=== PATIENT | male | born 1960 | race Caucasian/White ===

== ENCOUNTER → 2020-03-19 12:41 | Outpatient (BNVA) | payer OTHER, SELFPAY | PROVIDERS: PCP Internal Medicine; Referring Provider Internal Medicine; Visit Provider Nurse Practitioner | DX: Z76.89 Persons encountering health services in other specified circumstances (principal) ==

== ENCOUNTER 2020-05-21 07:33 | Day surgery (SDC) | payer OTHER, SELFPAY ==
[2020-05-15 09:23] VITALS: BMI 28.5
--- NOTE | 2020-05-20 10:18 | HO.ANESPROP2 ---
Documented by User: Maritza Benitez 05/20/20 10:19 HPI - Anesthesia Eval Consult details Narrative: 59yo M for Upper Endoscopy FOR[facility]LY [facility] Past Medical History Medical History Benign essential hypertension Elevated PSA Gastritis Hyperlipidemia Family History Family History Father No problems noted. Mother No problems noted. Surgical History Surgical History H/O colonoscopy H/O nasal polypectomy Social History Social History Are you a primary insurance healthcare consultant to a significant other at home: No Do you presently have visiting nurse or other home services: No Alcohol intake: current Alcohol intake frequency: holidays/special occasions only Alcohol type: wine and hard liquor Smoking Status: Never smoker Use of substances other than those prescribed or required for medical reasons: No Have you been hit, kicked, punched, or otherwise hurt by someone within the past year? If so, by whom?: No Advance Directives: No Advance Directives Information Provided: No Advance Directives on File: No Recently lost weight without trying: No Meds Allergies Allergy/AdvReac Type Severity Reaction Status Date / Time No Known Allergies Allergy Verified 05/21/20 07:44 [No Known Allergies*] Home Medications Medication Instructions Recorded Confirmed Type lisinopril 20 mg tablet 20 mg PO DAILY 02/21/20 05/15/20 History Exam Exam Date and Time: May 20, 2020 1018 Height,Weight and Vital Signs: Height 5 ft 11 in Weight 92.986 kg Assessment and Plan Assessment Anesthesia Assessment: Chart Reviewed Documented by User: Zamzam Garza 05/21/20 09:04 [facility] Past Medical History Medical History Benign essential hypertension Elevated PSA Gastritis Hyperlipidemia Family History Family History Father No problems noted. Mother No problems noted. Surgical History Surgical History H/O colonoscopy H/O nasal polypectomy Social History Social History Are you a primary insurance healthcare consultant to a significant other at home: No Do you presently have visiting nurse or other home services: No Alcohol intake: current Alcohol intake frequency: holidays/special occasions only Alcohol type: wine and hard liquor Smoking Status: Never smoker Use of substances other than those prescribed or required for medical reasons: No Have you been hit, kicked, punched, or otherwise hurt by someone within the past year? If so, by whom?: No Advance Directives: No Advance Directives Information Provided: No Advance Directives on File: No Recently lost weight without trying: No Meds Allergies Allergy/AdvReac Type Severity Reaction Status Date / Time No Known Allergies Allergy Verified 05/21/20 07:44 [No Known Allergies*] Home Medications Medication Instructions Recorded Confirmed Type lisinopril 20 mg tablet 20 mg PO DAILY 02/21/20 05/15/20 History Exam Airway Mallampati Class: II TM Dist: >3cm Heart: RRR Lungs: CTA
[2020-05-21 08:03] VITALS: BP 155/89; PULSE 82; RESP 16; TEMP 36.4; O2SAT 97
[2020-05-21] MEDS: Lactated Ringers 1,000 ML 100 ML IVCONT (08:04)
--- NOTE | 2020-05-21 08:25 | W.PM.OPN ---
Operative Note Operative Note Date of Service: 05/21/20 Narrative: Pre-op diagnosis: Intermittent epigastric pain Post-op diagnosis: other (Gastritis, prominent gastric folds) Procedure: FLEXIBLE TRANSORAL UPPER GASTROINTESTINAL ENDOSCOPY WITH BIOPSIES Consent: Indications for the procedure and potential complications of bleeding, perforation, reaction to medications and missed diagnosis were discussed with the patient and informed consent was obtained. Instrument: Olympus GIF H 190 mid size upper endoscope Monitoring: Vital signs and clinical assessment, continuous EKG monitoring, Pulse oximetry, Carbon Dioxide monitoring and blood pressure monitoring were done throughout the procedure. Procedure: The patient was placed in the left lateral decubitis position and pre-procedure medications were administered and a bite block was placed. The endoscope was inserted into the mouth and advanced under direct vision to the third part of duodenum. A careful inspection was made as the upper endoscope was withdrawn including a retroflexed examination of the proximal stomach; Findings and interventions are described below. Findings: Larynx: Normal Esophagus: GE junction at 40 cms.. No esophagitis or Garza Stomach: Prominent gastric folds in the body of the stomach - biopsied. Patulous pyloric opening. Mild gastric erythema. Biopsies were obtained. Grade 2 flap valve on retroflexed examination of the cardia. Duodenum: Normal bulb and descending duodenum. Biopsies were obtained from 3rd miki of duodenum to check for celiac sprue. Intervention: Biopsies as noted above Impression and Post Procedure Diagnosis: Endoscopy Findings: STOMACH: Prominent gastric folds in the body of the stomach - biopsied. Mild gastric erythema. Biopsies were obtained. DUODENUM: Normal, biopsied to check for celiac sprue. Plan: Await pathology results Patient has an appointment on 06/04/20 in the GI [facility] with KAREN Levy. Above findings were reviewed with the patient and Gastritis handout was given in the discharge area Surgeon: Selena Oquendo MD Anesthesia: MAC (Dr Gee) Estimated blood loss (mL): 0 Pathology: other (A. Small bowel, B. gastric antrum, C. Gastric folds.) Condition: stable Disposition: PACU
--- NOTE | 2020-05-21 08:25 | MHC.SHP ---
Pre-Procedural Eval Section A The patient is an INPATIENT: No The History & Physical has been completed within 30 days and I have reviewed it.: No Section B Chief Complaint: epigastric pain Details of Present Illness: Recurrent epigastric pain Relevant Family History (Specify if Yes): No Relevant Social History: None Present Medications: see Short Stay Collaborative assessment Medical History: Significant History (Benign essential hypertension Elevated PSA Gastritis Hyperlipidemia) History of Previous Operations: Relevant previous surgery/procedure and date(s) (Colonoscopy) Allergies: Allergies Allergy/AdvReac Type Severity Reaction Status Date / Time No Known Allergies Allergy Verified 05/21/20 07:44 [No Known Allergies*] Review of Systems Sugical H&P ROS: Negative: Constitution, Cardiovascular and Respiratory and Yes, Specify: Gastrointestinal (Intermittent epigastric pain) Exam Surgical H&P Exam: Normal: Heart, Normal: Lungs, Normal: Extremities and Normal: Abdomen Plan Diagnosis/Plan: Unchanged I have reviewed the history and physical and performed a pertinent physical examination on my patient. No changes have occurred unless specified.
[2020-05-21 08:53] VITALS: BP 125/75; PULSE 80; RESP 16; TEMP 36.4; O2SAT 96
--- NOTE | 2020-05-21 09:05 | HO.POSTANES ---
Post Anesthesia Evaluation Post Anesthesia Evaluation Vital Signs: Vital Signs Temp Pulse Resp BP Pulse Ox 05/21/20 08:53 97.5 F 80 16 125/75 96 05/21/20 08:03 97.6 F 82 16 155/89 H 97 Anesthesia: Monitored Mental Status: Awake Pain Control: Satisfactory Nausea/Vomiting: None Hydration: Adequate Anesthesia-Related Issues: No Anes. Related Issues
[2020-05-21 09:09] VITALS: BP 129/81; PULSE 81; RESP 16; TEMP 36.4; O2SAT 98
== END 2020-05-21 10:00 ==
LOC: HO.SSS 07:33
PROVIDERS: PCP Internal Medicine; Visit Provider Internal Medicine Gastroenterology
PROC: 0DJ08ZZ Inspection of Upper Intestinal Tract, Via Natural or Artificial Opening Endoscopic (ICD-10-PCS; CPT 43235; principal; 2020-05-21 08:30)
DX: K29.50 Unspecified chronic gastritis without bleeding (principal); K31.89 Other diseases of stomach and duodenum; I10 Essential (primary) hypertension; E78.5 Hyperlipidemia, unspecified
CPT/HCPCS: 43239; 88305; 88342

== ENCOUNTER → 2020-06-04 08:58 | Outpatient (BNVA) | payer OTHER, SELFPAY | PROVIDERS: PCP Internal Medicine; Visit Provider Nurse Practitioner ==

== ENCOUNTER 2020-06-21 07:36 | Outpatient (REF) | payer OTHER, SELFPAY ==
[2020-06-21 09:22] LABS: Prostate Specific Antigen 5.08 ng/mL (<0.05-4.0)
[2020-06-28 16:21] LABS: Gastrin 109 pg/mL (<=100)
== END 2020-06-21 07:37 | disposition home or self-care (01) ==
LOC: HO.LAB 07:36
PROVIDERS: PCP Internal Medicine; Referring Provider Nurse Practitioner; Visit Provider Internal Medicine
DX: K29.70 Gastritis, unspecified, without bleeding (principal); K27.9 Peptic ulcer, site unspecified, unspecified as acute or chronic, without hemorrhage or perforation; B96.81 Helicobacter pylori [H. pylori] as the cause of diseases classified elsewhere; R10.13 Epigastric pain; R97.20 Elevated prostate specific antigen [PSA]
CPT/HCPCS: 36415; 82941; 84153

== ENCOUNTER 2021-03-04 06:38 | Outpatient (REF) | payer OTHER, SELFPAY ==
[2021-03-04 06:46] LABS: MANUAL DIFF FLAG NO
[2021-03-04 07:27] LABS: Basophils Absolute Auto 0.1 X10*3/uL (0.0-0.2); Basophils Percent Auto 0.7 % (0-2); Eosinophils Absolute Auto 0.2 X10*3/uL (0.0-0.4); Eosinophils Percent Auto 2.4 % (0-4); Hematocrit 42.8 % (42.0-52.0); Hemoglobin 13.6 g/dl (14.0-18.0); Imm Gran Abs Auto 0.04 X10*3/uL (0.00-0.03); Imm Gran Pct Auto 0.6 % (0.0-0.4); Lymphocytes Absolute Auto 1.4 X10*3/uL (1.2-4.9); Lymphocytes Percent Auto 21.2 % (20-40); Mean Corpuscular HGB Conc 31.8 g/dl (31.0-36.0); Mean Corpuscular Hemoglobin 28.6 pg (27.0-33.0); Mean Corpuscular Volume 89.9 fL (80.0-98.0); Mean Platelet Volume 10.1 fL (9.4-12.4); Monocytes Absolute Auto 0.8 X10*3/uL (0.1-1.2); Monocytes Percent Auto 11.8 % (2-11); Neutrophils Absolute Auto 4.2 x10*3/uL (2.0-8.3); Neutrophils Percent Auto 63.3 % (45-73); Platelet Count 302 X10*3/uL (160-400); Red Blood Count 4.76 X10*6/uL (4.60-5.80); Red Cell Distribution Width 15.8 % (11.0-16.0); White Blood Count 6.7 X10*3/uL (4.8-10.8)
[2021-03-04 08:16] LABS: Estimated Average Glucose 105 mg/dL; Hemoglobin A1c % 5.3 %
[2021-03-04 08:36] LABS: Alanine Aminotransferase 31 U/L (0-40); Alkaline Phosphatase 98 U/L (39-117); Anion Gap 15 (12-20); Aspartate Amino Transferase 18 U/L (5-37); Blood Urea Nitrogen 12 mg/dL (9-16); Calcium 9.8 mg/dL (8.4-10.2); Carbon Dioxide 26 mmol/L (22-29); Chloride 107 mmol/L (96-108); Cholesterol 150 mg/dL; Estimated Glomerular Filt Rate > 60; Glucose Fasting 109 mg/dL (60-99); HDL Cholesterol 52 mg/dL; LDL Cholesterol Calculated 72 mg/dl; Sodium 143 mmol/L (135-145); Total Protein 6.3 g/dL (6.5-8.0); Triglycerides 131 mg/dL
[2021-03-04 09:23] LABS: Prostate Specific Antigen Scr 9.52 ng/mL (<0.05-4.0)
== END 2021-03-04 06:39 | disposition home or self-care (01) ==
LOC: HO.LAB 06:38
PROVIDERS: PCP Internal Medicine; Visit Provider Nurse Practitioner Family
DX: Z12.5 Encounter for screening for malignant neoplasm of prostate (principal); I10 Essential (primary) hypertension; E78.00 Pure hypercholesterolemia, unspecified; E11.9 Type 2 diabetes mellitus without complications; R97.20 Elevated prostate specific antigen [PSA]
CPT/HCPCS: 36415; 80053; 80061; 83036; 84153; 85025

== ENCOUNTER → 2021-03-25 09:01 | Outpatient (BNVA) | payer OTHER, SELFPAY | PROVIDERS: PCP Internal Medicine; Visit Provider Internal Medicine Pulmonary Disease ==

== ENCOUNTER 2021-04-07 09:03 | Outpatient (REF) | payer OTHER, SELFPAY ==
--- NOTE | 2021-04-07 16:29 | PFT_ITS ---
Forced vital capacity and FEV1 are both moderately decreased. FHA23-38 is normal. MVV is slightly decreased. Post bronchodilator therapy, there is no significant change. Total lung capacity moderately decreased and residual volume is markedly decreased. Diffusion capacity also markedly decreased. CONCLUSION: These findings are consistent with moderate degree of restrictive pulmonary disorder. There is no significant obstructive airway disorder. Diffusion capacity is markedly decreased somewhat out of proportion to the other values. This may be due to pulmonary emphysema or some non-pulmonary factors. Clinical correlation is recommended. MD SAKINA Breaux/MODL / [id number]
== END 2021-04-07 09:04 | disposition home or self-care (01) ==
LOC: HO.RESP 09:03
PROVIDERS: PCP Internal Medicine; Visit Provider Internal Medicine Pulmonary Disease
DX: R06.00 Dyspnea, unspecified (principal); U09.9 Post COVID-19 condition, unspecified
CPT/HCPCS: 94060; 94727; 94729

== ENCOUNTER 2021-04-22 13:18 | Outpatient (REF) | payer OTHER, SELFPAY ==
--- NOTE | ~2021-04-22 | CT_ITS ---
EXAMINATION: CT CHEST WITHOUT CONTRAST CLINICAL INFORMATION: Post COVID-19 infection. COMPARISON: None TECHNIQUE: Multidetector volumetric CT imaging of the chest was done. Axial MIP volume rendering provided. Sagittal and coronal reformatted images were obtained. This CT examination was performed using dose optimization techniques as appropriate, variously including the following: *Automated exposure control *Adjustment of mA and/or kV according to patient size (this includes techniques or standardized protocols for targeted exams where dose is matched to indication/reason for exam; i.e. extremities or head) *Use of iterative reconstruction technique DLP: 206 mGy-cm FINDINGS: SAND HAULER: No significant additional findings. LUNGS: Ground-glass opacities with reticulated and curvilinear intermixed interstitial lung markings predominantly involve the upper lung zones with hazy ground-glass opacities involving the lingula, middle lobe and lower lobes with less intensity. No dense focal consolidation. Minor fissural lymph node measures 0.5 cm. Trachea is midline and central airways are patent. MEDIASTINUM: Heart size is normal. No pericardial effusion. No evidence of mediastinal lymphadenopathy. Limited evaluation for hilar adenopathy without IV contrast. No bulky hilar lymph nodes are appreciated. Coronary artery stent. Limited views of the thyroid demonstrate a tiny hypodensity within the left thyroid lobe measuring 0.2 cm, no follow-up imaging recommended. PLEURA: No pleural effusion or pneumothorax. AXILLA: No axillary lymphadenopathy. UPPER ABDOMEN: There is an exophytic lesion off the upper pole the left kidney measuring internal attenuation of 17 Hounsfield units. Along the inferior edge of this lesion at the interface with the renal tissue is a thick irregular calcification. The renal contour inferior to this calcification is also a bulge along the posterolateral margin of the kidney but is only partially imaged. OSSEOUS STRUCTURES: No acute or suspicious osseous abnormality. CT/CT chest wo con IMPRESSION: 1. Incidentally found mass exophytic off the left kidney upper pole with thick coarse irregular calcification. Dedicated renal imaging is recommended with either CT or MRI for further assessment as renal cell carcinoma is on the differential diagnosis. 2. In this patient with known prior COVID infection, the lung findings described above are in keeping with postinfectious scarring and ground-glass opacities. No prior studies are available for comparison. Fleischner guidelines were followed. The report will be called to the ordering clinician by a [facility] Workflow Coordinator.
== END 2021-04-22 13:19 | disposition home or self-care (01) ==
LOC: HO.CT 13:18
PROVIDERS: Visit Provider Internal Medicine Pulmonary Disease
DX: U09.9 Post COVID-19 condition, unspecified (principal); N28.89 Other specified disorders of kidney and ureter
CPT/HCPCS: 71250

== ENCOUNTER 2021-04-29 07:22 | Outpatient (REF) | payer OTHER, SELFPAY ==
[2021-04-29 07:36] LABS: MANUAL DIFF FLAG NO
[2021-04-29 08:10] LABS: Basophils Absolute Auto 0.1 X10*3/uL (0.0-0.2); Basophils Percent Auto 0.8 % (0-2); Eosinophils Absolute Auto 1.1 X10*3/uL (0.0-0.4); Hematocrit 47.1 % (42.0-52.0); Imm Gran Abs Auto 0.02 X10*3/uL (0.00-0.03); Imm Gran Pct Auto 0.3 % (0.0-0.4); Lymphocytes Absolute Auto 1.5 X10*3/uL (1.2-4.9); Lymphocytes Percent Auto 19.6 % (20-40); Mean Corpuscular HGB Conc 31.8 g/dl (31.0-36.0); Mean Corpuscular Hemoglobin 28.4 pg (27.0-33.0); Mean Platelet Volume 11.1 fL (9.4-12.4); Monocytes Absolute Auto 0.8 X10*3/uL (0.1-1.2); Neutrophils Absolute Auto 4.2 x10*3/uL (2.0-8.3); Neutrophils Percent Auto 55.3 % (45-73); Platelet Count 207 X10*3/uL (160-400); Red Blood Count 5.29 X10*6/uL (4.60-5.80); Red Cell Distribution Width 13.8 % (11.0-16.0); White Blood Count 7.6 X10*3/uL (4.8-10.8)
[2021-04-29 08:36] LABS: Alanine Aminotransferase 27 U/L (0-40); Albumin Level 4.3 g/dL (3.5-5.0); Alkaline Phosphatase 91 U/L (39-117); Anion Gap 12 (12-20); Aspartate Amino Transferase 18 U/L (5-37); Bilirubin Total 0.7 mg/dL (0.0-1.0); Blood Urea Nitrogen 17 mg/dL (9-16); Calcium 9.9 mg/dL (8.4-10.2); Carbon Dioxide 28 mmol/L (22-29); Chloride 108 mmol/L (96-108); Estimated Glomerular Filt Rate > 60; Glucose Random 135 mg/dL (60-115); Potassium 4.5 mmol/L (3.3-5.1); Sodium 143 mmol/L (135-145); Total Protein 6.7 g/dL (6.5-8.0)
== END 2021-04-29 07:23 | disposition home or self-care (01) ==
LOC: HO.LAB 07:22
PROVIDERS: PCP Internal Medicine; Visit Provider Internal Medicine
DX: N28.89 Other specified disorders of kidney and ureter (principal)
CPT/HCPCS: 36415; 80053; 85025

== ENCOUNTER → 2021-05-01 09:13 | Outpatient (BNVA) | payer OTHER, SELFPAY | PROVIDERS: PCP Internal Medicine; Visit Provider Internal Medicine Pulmonary Disease ==

== ENCOUNTER 2021-05-26 06:18 | Outpatient (REF) | payer OTHER, SELFPAY ==
--- NOTE | ~2021-05-26 | CT_ITS ---
EXAMINATION: CT ABDOMEN WITHOUT AND WITH CONTRAST CLINICAL INFORMATION: Further evaluation of an indeterminate lesion in the left kidney. COMPARISON: CT chest dated from 04/22/2021. TECHNIQUE: Contiguous axial thin section helical images of the abdomen were performed before and after the administration 85 mL of Omnipaque 350 intravenous contrast. The data set was reformatted in the coronal and sagittal planes and reviewed on an independent workstation. This CT examination was performed using dose optimization techniques as appropriate, variously including the following: *Automated exposure control *Adjustment of mA and/or kV according to patient size (this includes techniques or standardized protocols for targeted exams where dose is matched to indication/reason for exam; i.e. extremities or head) *Use of iterative reconstruction technique DLP: 377 mGy-cm FINDINGS: LUNG BASES: Decrease groundglass opacities and reticulation in the visualized lung bases. No new focal airspace opacities. No pleural effusion. LIVER, GALLBLADDER, AND BILIARY TREE: The liver is normal in size, shape and attenuation without focal abnormalities. There is no biliary ductal dilatation. Normal appearance of the gallbladder. PANCREAS: The main pancreatic duct is nondilated. No focal abnormalities. No peripancreatic free fluid or fat stranding. SPLEEN: Normal size. No focal abnormalities. ADRENAL GLANDS AND KIDNEYS: No adrenal lesions. Corresponding to the lesion in question in the upper pole of the left kidney, there is redemonstration of a 1.9 cm lesion with thick peripheral calcifications. This lesion measures 18.8 Hounsfield units on precontrast images and 22 Hounsfield units on postcontrast images. The size of this lesion is unchanged since 04/22/2021. There is a 0.3 cm nonobstructive calculus in the mid pole of the left kidney situated at 7.7 cm from the skin surface of the posterior axillary line. There is redemonstration of indeterminate cortical thinning in the lateral surface of the upper pole of the right kidney. No hydronephrosis. No solid renal lesions. BOWEL LOOPS: Imaged segments of the bowel are within normal limits without evidence of obstruction nor active inflammatory bowel changes. LYMPH NODES: No lymphadenopathy by size criteria. VASCULAR: Scattered atherosclerotic disease. The abdominal aorta is of normal diameter. BONES: No acute or aggressive osseous abnormalities. Thoracolumbar spondylosis. CT/CT abdomen wo/w con IMPRESSION: Nonenhancing stable 1.9 cm cystic lesion in the upper pole of the left kidney with thick peripheral calcifications that could potentially obscure peripheral mural nodules. This is classified as a Bosniak 2F lesion requiring follow-up to ensure stability. Nonobstructive left-sided renal calculus.
[2021-05-26 07:42] LABS: Glucose Fasting 121 mg/dL (60-99)
[2021-05-26 07:45] LABS: Blood Urea Nitrogen 11 mg/dL (9-16); Estimated Glomerular Filt Rate > 60
== END 2021-05-26 06:19 | disposition home or self-care (01) ==
LOC: HO.CT 06:18
PROVIDERS: Nurse Practitioner Family; PCP Internal Medicine; Visit Provider Internal Medicine
DX: N28.89 Other specified disorders of kidney and ureter (principal); E78.5 Hyperlipidemia, unspecified; I10 Essential (primary) hypertension; N17.9 Acute kidney failure, unspecified; R73.9 Hyperglycemia, unspecified
CPT/HCPCS: 36415; 74170; 82565; 82947; 84520

== ENCOUNTER → 2021-07-31 09:10 | Outpatient (BNVA) | payer OTHER, SELFPAY | PROVIDERS: PCP Internal Medicine; Visit Provider Internal Medicine Pulmonary Disease | DX: Z13.89 Encounter for screening for other disorder (principal) ==

== ENCOUNTER 2021-10-31 13:50 | Outpatient (AMB) | payer OTHER, SELFPAY ==
--- NOTE | 2021-10-31 13:52 | A.OFFVIS_ITS ---
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 He is a patient Dr. [place]. He seen for the following urologic conditions - elevated PSA - calcified renal cyst - lower urinary tract symptoms Presents with urinary urgency and frequency Recommend trial Flomax Follow-up PSA Elevated PSA COVID prostatitis been 1 month on ventilator PSA 07/15 9 Calcified renal cyst Detected on imaging Lower urinary tract symptoms Initial presentation with hesitancy and nocturia PFSH Medical History (Updated 11/30/22 @ 16:20 by León Vo MD) Varicose veins of lower extremities with other complications Diabetes mellitus Obesity (BMI 30-39.9) Coronary artery disease Benign prostatic hyperplasia with urinary frequency Pure hypercholesterolemia Left renal mass Overweight (BMI 25.0-29.9) Chronic gastritis H pylori ulcer Hyperlipidemia Elevated PSA Gastritis Benign essential hypertension Surgical History (Updated 11/30/22 @ 16:16 by León Vo MD) Status post endovenous radiofrequency ablation of saphenous vein (~2022) History of coronary artery stent placement (~10/2020) H/O colonoscopy H/O nasal polypectomy Family History Father No problems noted. Mother No problems noted. 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 Cognitive needs: No Hearing needs: No Vision needs: No Review of Systems Const Denies chills and Denies fever(s) Card Reports no additional complaints and Denies syncope Resp Denies cough GI Denies abdominal pain and Denies heartburn Reports as per HPI and Denies change in libido Neuro Denies syncope Psych Denies change in libido Endo Denies change in libido Physical Exam Vital Signs: Last Vital Signs Pulse 72 10/31/21 13:59 Resp 18 10/31/21 13:59 BP 114/90 H 10/31/21 13:59 BMI result Body Mass Index 30.7 Const General: cooperative, healthy appearing, comfortable and no acute distress Orientation/consciousness: patient oriented x3 HEENT Face and sinus: Yes normal facial exam Mouth: moist mucous membranes Neck Neck: Yes normal visual inspection, Yes full ROM and Yes trachea midline Chest Chest palpation & inspection: normal inspection of the chest Resp Effort & Inspection: normal respiratory effort, able to speak in complete sentences and no respiratory distress GI Inspection: Yes normal to inspection Back/Spine/Pelvis Cervical Spine: normal cervical lordosis Thoracic/Lumbar Spine: thoracic and lumbar spine normal to inspection Skin General skin exam: no rashes or lesions noted Neuro General: patient oriented x3, gait normal, tone normal and moves all extremities Extrem General: Yes normal to inspection and Yes capillary refill normal Assessment & Plan Assessment & Plan (1) Benign prostatic hyperplasia with urinary frequency: Code(s): N40.1 - Benign prostatic hyperplasia with lower urinary tract symptoms; R35.0 - Frequency of micturition Plan Trial tamsulosin Follow-up PSA Orders: Orders PSA,Total (Free>4and<10) 3 Months N40.1 - Benign prostatic hyperplasia with lower urinary tract symptoms, N13.8 - Other obstructive and reflux uropathy, R35.0 - Frequency of micturition PSA,Total (Free>4and<10) 10/31/21 N40.1 - Benign prostatic hyperplasia with lower urinary tract symptoms, N13.8 - Other obstructive and reflux uropathy, R35.0 - Frequency of micturition Medications: New tamsulosin 0.4 mg PO BEDTIME 90 caps 1RF 90 days N40.1 - Benign prostatic hyperplasia with lower urinary tract symptoms, R35.0 - Frequency of micturition, N13.8 - Other obstructive and reflux uropathy Patient Instructions: The patient had an opportunity to ask questions regarding treatment plan. All questions were answered. Imaging studies, laboratory studies and physical exam results were discussed and reviewed in detail. No major barriers to understanding were identified. The patient expressed understanding and agreement with the above treatment plan. The patient is aware they should contact our office by phone for worsening of their current condition or the appearance of new symptoms. Compliance is encouraged with any medications and followup testing that is ordered. It is a privilege to be allowed the opportunity to participate in the urologic care of your patient. If you have any questions or concerns regarding treatment for the above conditions please do not hesitate to contact me. The office telephone contact is [phone]. This note is constructed using voice recognition software. While every effort has been made to ensure accuracy artist representative errors may have been included. Yours sincerely, Dr Antoni Karimi MD, NELIDA Coding Level of Care Code New Pt Level 4 (59124) Diagnoses Benign prostatic hyperplasia with urinary frequency N40.1; R35.0
[2021-10-31 13:59] VITALS: BP 114/90; PULSE 72; RESP 18; BMI 30.7
== END 2021-10-31 14:37 | disposition home or self-care (01) ==
LOC: HO.HUSH 13:50
PROVIDERS: PCP Internal Medicine; Visit Provider Urology
DX: N40.1 Benign prostatic hyperplasia with lower urinary tract symptoms (principal); R35.0 Frequency of micturition
CPT/HCPCS: 99499

== ENCOUNTER 2021-11-08 07:02 | Outpatient (REF) | payer OTHER, SELFPAY ==
[2021-11-08 07:13] LABS: MANUAL DIFF FLAG NO
[2021-11-08 08:26] LABS: Basophils Absolute Auto 0.1 X10*3/uL (0.0-0.2); Basophils Percent Auto 1.1 % (0-2); Eosinophils Absolute Auto 0.4 X10*3/uL (0.0-0.4); Eosinophils Percent Auto 5.9 % (0-4); Hematocrit 48.7 % (42.0-52.0); Imm Gran Abs Auto 0.03 X10*3/uL (0.00-0.03); Imm Gran Pct Auto 0.5 % (0.0-0.4); Lymphocytes Absolute Auto 1.5 X10*3/uL (1.2-4.9); Lymphocytes Percent Auto 22.5 % (20-40); Mean Corpuscular HGB Conc 32.9 g/dl (31.0-36.0); Mean Corpuscular Volume 88.2 fL (80.0-98.0); Mean Platelet Volume 11.3 fL (9.4-12.4); Monocytes Absolute Auto 0.6 X10*3/uL (0.1-1.2); Monocytes Percent Auto 9.7 % (2-11); Neutrophils Percent Auto 60.3 % (45-73); Platelet Count 199 X10*3/uL (160-400); Red Blood Count 5.52 X10*6/uL (4.60-5.80); Red Cell Distribution Width 13.9 % (11.0-16.0); White Blood Count 6.6 X10*3/uL (4.8-10.8)
[2021-11-08 08:31] LABS: Appearance Urine HAZY; Color Urine YELLOW; Glucose Urine UA NEG (NEG); Leukocyte Esterase Urine NEG (NEG); Nitrite Urine NEG (NEG); PH 5.5 (5.0-8.0); Specific Gravity - Urine >= 1.030 (1.005-1.025); Urine Blood NEG (NEG); Urine Ketones NEG (NEG); Urine Protein NEG (NEG-TRACE)
[2021-11-08 09:05] LABS: Alanine Aminotransferase 42 U/L (0-40); Albumin Level 4.4 g/dL (3.5-5.0); Alkaline Phosphatase 90 U/L (39-117); Anion Gap 11 (12-20); Aspartate Amino Transferase 30 U/L (5-37); Bilirubin Total 0.7 mg/dL (0.0-1.0); Blood Urea Nitrogen 16 mg/dL (9-16); Calcium 8.9 mg/dL (8.4-10.2); Carbon Dioxide 24 mmol/L (22-29); Chloride 109 mmol/L (96-108); Cholesterol 140 mg/dL; Estimated Glomerular Filt Rate > 60; Glucose Fasting 113 mg/dL (60-99); HDL Cholesterol 53 mg/dL; LDL Cholesterol Calculated 71 mg/dl; Potassium 4.4 mmol/L (3.3-5.1); Sodium 140 mmol/L (135-145); Total Protein 6.8 g/dL (6.5-8.0); Triglycerides 84 mg/dL
[2021-11-08 09:17] LABS: TSH reflex Free T4 1.73 uIU/mL (0.32-4.0); Vitamin D 25-OH Total 42.2 ng/mL (>30)
[2021-11-08 09:18] LABS: PSA,Total (Free>4and<10) 3.68 ng/mL (0.00-4.00)
== END 2021-11-08 07:03 | disposition home or self-care (01) ==
LOC: HO.LAB 07:02
PROVIDERS: PCP Internal Medicine; Visit Provider Urology
DX: Z12.5 Encounter for screening for malignant neoplasm of prostate (principal); E78.00 Pure hypercholesterolemia, unspecified; E55.9 Vitamin D deficiency, unspecified; N13.8 Other obstructive and reflux uropathy; N40.1 Benign prostatic hyperplasia with lower urinary tract symptoms; R35.0 Frequency of micturition; I10 Essential (primary) hypertension
CPT/HCPCS: 36415; 80053; 80061; 81003; 82306; 84153; 84443; 85025

== ENCOUNTER 2022-01-24 08:12 | Outpatient (REF) | payer OTHER, SELFPAY ==
[2022-01-24 10:22] LABS: PSA,Total (Free>4and<10) 4.02 ng/mL (0.00-4.00)
[2022-01-27 09:02] LABS: Free Prostate Spec Ag 0.6 ng/mL; Percent Free Prostate Spec Ag 14 % (calc) (>25); Prostate Specific Ag Total 4.2 ng/mL (< OR = 4.0)
== END 2022-01-24 08:13 | disposition home or self-care (01) ==
LOC: HO.LAB 08:12
PROVIDERS: PCP Internal Medicine; Visit Provider Urology
DX: N40.1 Benign prostatic hyperplasia with lower urinary tract symptoms (principal); N13.8 Other obstructive and reflux uropathy; R35.0 Frequency of micturition; R73.01 Impaired fasting glucose; Z12.5 Encounter for screening for malignant neoplasm of prostate
CPT/HCPCS: 36415; 84153; 84154

== ENCOUNTER 2022-05-16 07:05 | Outpatient (REF) | payer OTHER, SELFPAY ==
[2022-05-16 07:56] LABS: Estimated Average Glucose 143 mg/dL; Hemoglobin A1c % 6.6 %
[2022-05-16 08:54] LABS: Alanine Aminotransferase 58 U/L (0-40); Albumin Level 4.4 g/dL (3.5-5.0); Alkaline Phosphatase 100 U/L (39-117); Anion Gap 13 (12-20); Aspartate Amino Transferase 37 U/L (5-37); Bilirubin Total 1.2 mg/dL (0.0-1.0); Blood Urea Nitrogen 13 mg/dL (9-16); Calcium 9.8 mg/dL (8.4-10.2); Carbon Dioxide 27 mmol/L (22-29); Chloride 107 mmol/L (96-108); Cholesterol 161 mg/dL; Estimated Glomerular Filt Rate > 60; Glucose Random 130 mg/dL (60-115); HDL Cholesterol 50 mg/dL; LDL Cholesterol Calculated 89 mg/dl; Potassium 4.7 mmol/L (3.3-5.1); Sodium 142 mmol/L (135-145); Total Protein 6.8 g/dL (6.5-8.0); Triglycerides 111 mg/dL
== END 2022-05-16 07:06 | disposition home or self-care (01) ==
LOC: HO.LAB 07:05
PROVIDERS: PCP Internal Medicine; Visit Provider Nurse Practitioner Family
DX: I10 Essential (primary) hypertension (principal); R73.01 Impaired fasting glucose; E78.00 Pure hypercholesterolemia, unspecified
CPT/HCPCS: 36415; 80053; 80061; 83036

== ENCOUNTER 2022-08-08 07:11 | Outpatient (REF) | payer OTHER, SELFPAY ==
[2022-08-08 09:41] LABS: Prostate Specific Antigen 4.98 ng/mL (<0.05-4.0)
== END 2022-08-08 07:12 | disposition home or self-care (01) ==
LOC: HO.LAB 07:11
PROVIDERS: PCP Internal Medicine; Visit Provider Urology
DX: Z12.5 Encounter for screening for malignant neoplasm of prostate (principal); R97.20 Elevated prostate specific antigen [PSA]
CPT/HCPCS: 36415; 84153

== ENCOUNTER → 2022-08-11 08:34 | Outpatient (BNVA) | payer OTHER, SELFPAY | PROVIDERS: PCP Internal Medicine; Visit Provider Urology | DX: Z13.89 Encounter for screening for other disorder (principal) ==

== ENCOUNTER 2022-11-07 10:27 | Outpatient (REF) | payer OTHER, SELFPAY ==
[2022-11-07 10:53] LABS: MANUAL DIFF FLAG NO
[2022-11-07 11:01] LABS: Basophils Percent Auto 0.6 % (0-2); Eosinophils Absolute Auto 0.1 X10*3/uL (0.0-0.4); Eosinophils Percent Auto 1.4 % (0-4); Hemoglobin 14.8 g/dl (14.0-18.0); Imm Gran Abs Auto 0.02 X10*3/uL (0.00-0.03); Imm Gran Pct Auto 0.3 % (0.0-0.4); Lymphocytes Absolute Auto 1.4 X10*3/uL (1.2-4.9); Lymphocytes Percent Auto 21.8 % (20-40); Mean Corpuscular HGB Conc 32.9 g/dl (31.0-36.0); Mean Corpuscular Hemoglobin 28.7 pg (27.0-33.0); Mean Corpuscular Volume 87.2 fL (80.0-98.0); Mean Platelet Volume 10.5 fL (9.4-12.4); Monocytes Absolute Auto 0.6 X10*3/uL (0.1-1.2); Monocytes Percent Auto 10.2 % (2-11); Neutrophils Absolute Auto 4.1 x10*3/uL (2.0-8.3); Neutrophils Percent Auto 65.7 % (45-73); Platelet Count 244 X10*3/uL (160-400); Red Blood Count 5.16 X10*6/uL (4.60-5.80); Red Cell Distribution Width 13.8 % (11.0-16.0); White Blood Count 6.3 X10*3/uL (4.8-10.8)
[2022-11-07 11:12] LABS: Estimated Average Glucose 114 mg/dL; Hemoglobin A1c % 5.6 %
[2022-11-07 11:22] LABS: Appearance Urine Clear; Color Urine Yellow; Glucose Urine UA Negative (Negative); Leukocyte Esterase Urine Negative (Negative); Nitrite Urine Negative (Negative); Urine Blood Negative (Negative); Urine Ketones Negative (Negative); Urine Protein Negative (Neg-Trace)
[2022-11-07 11:51] LABS: Alanine Aminotransferase 53 U/L (0-40); Albumin Level 3.8 g/dL (3.5-5.0); Alkaline Phosphatase 121 U/L (39-117); Anion Gap 11 (12-20); Aspartate Amino Transferase 32 U/L (5-37); Bilirubin Total 0.7 mg/dL (0.0-1.0); Blood Urea Nitrogen 14 mg/dL (9-16); Calcium 9.4 mg/dL (8.4-10.2); Carbon Dioxide 26 mmol/L (22-29); Chloride 110 mmol/L (96-108); Cholesterol 117 mg/dL; Estimated Glomerular Filt Rate > 60; Glucose Fasting 108 mg/dL (60-99); HDL Cholesterol 42 mg/dL; LDL Cholesterol Calculated 65 mg/dl; Potassium 4.2 mmol/L (3.3-5.1); Sodium 143 mmol/L (135-145); Total Protein 6.2 g/dL (6.5-8.0); Triglycerides 53 mg/dL
[2022-11-07 11:54] LABS: Creatinine Urine 136.64 mg/dL; Microalbum/Creatinine Ratio Ur 5.1 ug/mg cr
[2022-11-07 12:06] LABS: Vitamin D 25-OH Total 47.5 ng/mL (>30)
== END 2022-11-07 10:28 | disposition home or self-care (01) ==
LOC: HO.LAB 10:27
PROVIDERS: PCP Internal Medicine; Visit Provider Internal Medicine
DX: R30.0 Dysuria (principal); E11.9 Type 2 diabetes mellitus without complications; E78.00 Pure hypercholesterolemia, unspecified; I10 Essential (primary) hypertension; E55.9 Vitamin D deficiency, unspecified
CPT/HCPCS: 36415; 80053; 80061; 81003; 82043; 82306; 83036; 84443; 85025

== ENCOUNTER 2022-11-30 15:25 | Outpatient (AMB) | payer OTHER, SELFPAY ==
[2022-11-30 15:32] VITALS: BP 118/80; PULSE 61; O2SAT 98; BMI 28.8
--- NOTE | 2022-11-30 15:32 | MHC.PC.OV ---
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 Accompanied by: Self / Same As Patient Allergies No Known Allergies [No Known Allergies*] Allergy (Verified 11/30/22 15:49) Medication List - Last Reconciled 11/30/22 by León Vo MD aspirin 81 mg PO DAILY 90 days atorvastatin 80 mg PO DAILY 90 days blood pressure monitor (Blood Pressure Kit) As directed clonidine HCl 0.2 mg PO Q12H 90 days lisinopril 20 mg PO DAILY 90 days metoprolol tartrate 12.5 mg (1/2 x 25 mg) PO BID 90 days tamsulosin 0.4 mg PO BEDTIME 90 days Tobacco use date assessed: 11/30/22 Dental Screening Dental Screen Date: 11/30/22 Did you have a dental visit in the last 12 months?: No Did you have a dental problem in the last 6 months where you did not have access to dental care?: No Was dental information given to patient?: No HPI DM, HTN, hyperlipidemia HPI Details Patient comes in today for his follow up visit States that he feels okay He denies any headaches or dizziness Denies any chest pains, no SOB No nausea/vomiting, no abdominal pain No change in bowel habits noted States that his previous right heel ulcer is now almost healed up completely Had ablation of his right great saphenous vein with Dr. Levy earlier this year and states that his leg swelling and symptoms have improved a lot since his procedure He is also scheduled for a prostate Bx with Dr. Karimi here at [facility] in 3 days and has been off his low dose Aspirin for about a week now Had his follow up labs done a few weeks ago - to discuss his results [facility] Medical History (Updated 11/30/22 @ 16:20 by León Vo MD) Benign essential hypertension Benign prostatic hyperplasia with urinary frequency Chronic gastritis Coronary artery disease Diabetes mellitus Elevated PSA Gastritis H pylori ulcer Hyperlipidemia Left renal mass Obesity (BMI 30-39.9) Overweight (BMI 25.0-29.9) Pure hypercholesterolemia Varicose veins of lower extremities with other complications Surgical History (Updated 11/30/22 @ 16:16 by León Vo MD) H/O colonoscopy H/O nasal polypectomy History of coronary artery stent placement (~10/2020) Status post endovenous radiofrequency ablation of saphenous vein (~2022) Family History Father No problems noted. Mother No problems noted. 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 1. Little interest or pleasure in doing things: not at all 2. Feeling down, depressed, or hopeless: not at all 3. Trouble falling or staying asleep, or sleeping too much: not at all 4. Feeling tired or having little energy: not at all 5. Poor appetite or overeating: not at all 6. Feeling bad about yourself - or that you are a failure or have let yourself or your family down: not at all 7. Trouble concentrating on things, such as reading the newspaper or watching television: not at all 8. Moving or speaking so slowly that other people could have noticed. Or the opposite - being so fidgety or restless that you have been moving around a lot more than usual: not at all 9. Thoughts that you would be better off or of hurting yourself in some way: not at all Total score: 0 Depression Screening Interpretation: Negative 54357 - PHQ-9 Billing: Yes Source: Developed by Drs. Raul Brown, Riana Kincaid, Rocky Ricci and colleagues, with an educational andrés from [employer] [facility] [employer] Information. Thrive Questionnaire Date Thrive assessed: 11/30/22 I am a: Patient What is your living situation today?: I have a steady place to live Within the past 12 months, did the food you bought not last and you didn't have the money to get more?: Never true Within the past 12 months, did you worry whether your food would run out before you got money to buy more?: Never true Do you have trouble paying for medicines?: No Do you have trouble getting transportation to medical appointments?: No Do you have trouble paying your heating and electricity bill?: No Do you have trouble taking care of your child, family member or friend?: No Do you have trouble with day-to-day activities such as bathing, preparing meals, shopping, managing finances, etc.?: No Are you currently unemployed and looking for a job?: No Are you interested in more education?: No Please select the resources that you would like help with: None Currently or been in a relationship where the following occur: no concerns reported AUDIT C Alcohol Use Questionnaire (AUDIT-C) 1. How often do you have a drink containing alcohol?: Never 3. How often do you have six or more drinks on one occasion?: Never Total Score: 0 Score Reviewed/Action Taken: Yes ELROY-7 AMB Questionnaire ELROY-7 Date ELROY - 7 assessed: 11/30/22 Feeling nervous, anxious, or on edge: 0 = Not at all Not being able to stop or control worryin = Not at all Worrying too much about different things: 0 = Not at all Trouble relaxin = Not at all Being so restless that it is hard to sit still: 0 = Not at all Becoming easily annoyed or irritable: 0 = Not at all Feeling afraid as if something awful might happen: 0 = Not at all Total ELROY-7 score (0-4 normal; 5-9 mild; 10-14 moderate; 15-21 severe): 0 Source: Developed by Drs. Raul Brown, Riana Kincaid, Rocky Ricci and colleagues, with an educational andrés from [employer] Reviews [employer] Information. ELROY-7 Assessment Billing ELROY-7 Assessment Tool: ELROY-7 Assessment 29228 Review of Systems Const Denies chills, Denies fatigue, Denies fever(s) and Denies headache(s) ENT Denies dysphagia, Denies dizziness, Denies otalgia, Denies headache(s), Denies odynophagia and Denies sore throat Card Denies chest pain, Denies palpitations and Denies dyspnea Resp Denies cough and Denies dyspnea GI Denies abdominal pain, Denies constipation, Denies dysphagia, Denies heartburn, Denies diarrhea, Denies nausea, Denies odynophagia and Denies vomiting Denies dysuria, Denies nocturia and Denies urinary frequency Skin/Breast Details: previous sore over the lateral aspect of the right ankle has healed up - no open wound noted Denies rash Neuro Denies dizziness and Denies headache(s) Endo Denies fatigue and Denies palpitations Physical exam (Primary Care) Vital Signs: Last Vital Signs Pulse 61 11/30/22 15:32 BP 118/80 11/30/22 15:32 Pulse Ox 98 11/30/22 15:32 Oxygen Delivery Method Room Air 11/30/22 15:32 BMI result Body Mass Index 28.8 Tobacco/Smoking Status: Tobacco use Status Tobacco use date assessed 11/30/22 11/30/22 15:36 Patient Tobacco Use Status Never used Tobacco 11/30/22 15:36 e-Cigarette/Vaping Use Never Used 11/30/22 15:36 PHQ-9: PHQ-9 Score PHQ-9: Total score 0 11/30/22 15:36 Depression Screening Interpretation: Negative Thrive Assessment: Date of Thrive Assessment Date Thrive assessed 11/30/22 11/30/22 15:36 Currently or been in a relationship where the following occur: no concerns reported Const General: no acute distress and alert HENMT Ears: TM's normal bilaterally and EAC's normal Throat: Yes posterior oropharynx normal and Yes tonsils normal (no TP congestion) Neck Neck: Yes no lymphadenopathy and Yes supple Resp Auscultation: clear to auscultation bilaterally, no rales and no wheezes Cardio Rate: regular rate Rhythm: regular rhythm Heart sounds: no murmurs GI Palpation (GI): Soft to palpation and nontender Auscultation: normal bowel sounds Back/Spine/Pelvis Thoracic/Lumbar Spine: No lumbar spinal tenderness Skin Other: (+) healed scar over the lateral aspect of the right ankle Rashes: no rashes Extrem General: No clubbing, No cyanosis and Yes pedal edema ((+) trace, bilaterally) Results Reviewed Results Reviewed: Laboratory Tests 11/07/22 11/07/22 11/07/22 10:39 10:39 10:51 WBC 6.3 Hgb 14.8 Hct 45.0 Plt Count 244 Sodium Potassium Creatinine Estimated GFR Fasting Glucose Hemoglobin A1c % Calcium AST ALT Triglycerides Cholesterol LDL Cholesterol, Calc HDL Cholesterol 25-OH Vitamin D Total TSH Ur Specific [place] 1.020 Urine Protein Negative Urine Glucose (UA) Negative Urine Blood Negative Microalb/Creat Ratio 5.1 11/07/22 11/07/22 10:51 10:51 WBC Hgb Hct Plt Count Sodium 143 Potassium 4.2 Creatinine 0.82 Estimated GFR > 60 Fasting Glucose 108 H Hemoglobin A1c % 5.6 Calcium 9.4 AST 32 ALT 53 H Triglycerides 53 Cholesterol 117 LDL Cholesterol, Calc 65 HDL Cholesterol 42 25-OH Vitamin D Total 47.5 TSH 0.60 Ur Specific [place] Urine Protein Urine Glucose (UA) Urine Blood Microalb/Creat Ratio Assessment and Plan Assessment & Plan (1) Coronary artery disease: Comment: S/P NSTEMI in 10/2020; (+) ROSALIO to OM-1 / circumflex artery Code(s): I25.10 - Atherosclerotic heart disease of [place] coronary artery without angina pectoris Qualifiers: Coronary Disease-Associated Artery/Lesion type: [place] artery [place] vs. transplanted heart: [place] heart Associated angina: without angina Qualified Code(s): I25.10 - Atherosclerotic heart disease of [place] coronary artery without angina pectoris Plan: S/P NSTEMI in 10/2020 requiring ROSALIO to circumflex artery S/P Ticagrelor 90 mg BID x 1 year Patient is currently asymptomatic from cardiac standpoint Continue lifelong low dose Aspirin at 81 mg QD and Metoprolol 12.5 mg BID Follow up with cardiology as scheduled (2) Pure hypercholesterolemia: Code(s): E78.00 - Pure hypercholesterolemia, unspecified Plan: Results of his labs done a few weeks ago reviewed and discussed with patient - lipids have improved significantly from previous Reinforced low cholesterol diet Continue Atorvastatin 80 mg QD Will recheck his labs and fasting lipids in 4 months for follow up (3) Benign essential hypertension: Code(s): I10 - Essential (primary) hypertension Plan: Reinforced low sodium diet - goal is systolic BP of 120 mm or less Continue Lisinopril 20 mg QD, Metoprolol 12.5 mg BID and Clonidine 0.2 mg BID (4) Diabetes mellitus: Code(s): E11.9 - Type 2 diabetes mellitus without complications Qualifiers: Diabetes mellitus type: type 2 Diabetes mellitus usp insulin use: without terminal operations supervisor use Diabetes mellitus complication status: without complication Qualified Code(s): E11.9 - Type 2 diabetes mellitus without complications Plan: His HgbA1c has improved to 5.6% on his labs done a few weeks ago (was previously at 6.6% earlier this year) - goal is at least <6.5% Reinforced diabetic diet; patient declined offer to start him on Rx previously and wanted to try diet modification, exercise and weight loss first Discussed that he has been successful in getting his blood sugar back under control and if he can continue to do so, then he would not need to start taking anything for his blood sugar (5) Left renal mass: Code(s): N28.89 - Other specified disorders of kidney and ureter Plan: Abdominal CT done last year for his left renal mass came out benign - mass is a nonenhancing stable 1.9 cm cystic lesion in the upper pole of the left kidney with thick peripheral calcifications that could potentially obscure peripheral mural nodules. This is classified as a Bosniak 2F lesion and it was recommended that he get a follow-up CT in about a year's time to ensure stability Repeat abdominal CT was ordered for follow up earlier this year but was denied by insurance; wll reorder (6) Renal calculus, left: Code(s): N20.0 - Calculus of kidney Plan: (+) NON-OBSTRUCTING stones seen in the left kidney incidentally on his recent abdominal CT Patient is currently asymptomatic and does not require any intervention at this time Encouraged to increase his oral fluids (7) Varicose veins of lower extremities with other complications: Code(s): I83.893 - Varicose veins of bilateral lower extremities with other complications Plan: S/P right great saphenous vein ablation with venaseal by Dr. Levy a few months ago (early 2022) with (+) improvement of his leg symptoms Was advised that he also has vebous reflux on his left leg but as he has very little symptoms on the left leg, no intervention is needed at this time Follow up with vascular surgery as scheduled (8) Benign prostatic hyperplasia with urinary frequency: Code(s): N40.1 - Benign prostatic hyperplasia with lower urinary tract symptoms; R35.0 - Frequency of micturition Plan: Continue Tamsulosin 0.4 mg Q HS He is scheduled for prostate Bx with Dr. Karimi in a few days because of his elevated PSA level seen on his labs done a few weeks ago Follow up with urology as scheduled (9) Overweight (BMI 25.0-29.9): Code(s): E66.3 - Overweight Plan: Reinforced diet/exercise as tolerated/lose weight - patient has been able to lose almost 20 pounds since his last visit Plan Follow up in 4 months Orders: Orders CT abdomen wo/w IV con Today N28.89 - Other specified disorders of kidney and ureter, R10.9 - Unspecified abdominal pain Comprehensive [place]. Panel Fast 4 Months E78.00 - Pure hypercholesterolemia, unspecified Hemoglobin A1c 4 Months E11.9 - Type 2 diabetes mellitus without complications Lipid Panel 4 Months E78.00 - Pure hypercholesterolemia, unspecified TSH reflex Free T4 4 Months E78.00 - Pure hypercholesterolemia, unspecified Vitamin D 25-OH Total 4 Months E55.9 - Vitamin D deficiency, unspecified Microalbumin, Random (w Creat) 4 Months E11.9 - Type 2 diabetes mellitus without complications Complete Blood Count Auto Diff 4 Months I10 - Essential (primary) hypertension UA CC w/rflx Micro + Cult 4 Months R30.0 - Dysuria Coding Level of Care Code Est Pt Level 4 (21512) Diagnoses Coronary artery disease I25.10 Coronary Disease-Associated Artery/Lesion type: [place] artery [place] vs. transplanted heart: [place] heart Associated angina: without angina Pure hypercholesterolemia E78.00 Benign essential hypertension I10 Diabetes mellitus E11.9 Diabetes mellitus type: type 2 Diabetes mellitus usp insulin use: without terminal operations supervisor use Diabetes mellitus complication status: without complication Left renal mass N28.89 Renal calculus, left N20.0 Varicose veins of lower extremities with other complications I83.893 Benign prostatic hyperplasia with urinary frequency N40.1; R35.0 Overweight (BMI 25.0-29.9) E66.3 Additional Codes ELROY-7 Assessment Billing - ELROY-7 Assessment Tool: ELROY-7 Assessment [id number] ([id number])
== END 2022-11-30 16:08 | disposition home or self-care (01) ==
PROVIDERS: PCP Internal Medicine; Visit Provider Internal Medicine
DX: I25.10 Atherosclerotic heart disease of native coronary artery without angina pectoris (principal); E78.00 Pure hypercholesterolemia, unspecified; I10 Essential (primary) hypertension; E11.9 Type 2 diabetes mellitus without complications; N28.89 Other specified disorders of kidney and ureter; N20.0 Calculus of kidney; I83.893 Varicose veins of bilateral lower extremities with other complications; N40.1 Benign prostatic hyperplasia with lower urinary tract symptoms; R35.0 Frequency of micturition; E66.3 Overweight
CPT/HCPCS: 99214

== ENCOUNTER 2022-12-03 07:48 | Outpatient (REF) | payer OTHER, SELFPAY ==
[2022-12-03 07:59] VITALS: BMI 28.7
[2022-12-03 08:00] VITALS: BP 154/92; PULSE 81; RESP 16; TEMP 36.3; O2SAT 98
--- NOTE | 2022-12-03 08:20 | W.PM.OPN ---
Operative Note Operative Note Date of Service: 12/03/22 Narrative: Preoperative diagnosis: Elevated PSA Postoperative diagnosis: Elevated PSA Procedure: 1. transrectal ultrasound measurement of prostate 2. transrectal ultrasound-guided pudendal nerve block 3. transrectal ultrasound-guided prostate biopsy 12 core Surgeon: Dr. Antoni Karimi Anesthetic: Local Indications for procedure: Elevated PSA 5.0 Procedure: After informed consent was verified, the patient was brought into the procedure area and lay left-hand side down on the table. Patient identity confirmed. Perioperative antibiotics confirmed. Safety pause time out performed. EDIE performed to dilate rectal sphincter Iodine 10cc with Gel was placed per rectum Ultrasound probe was placed per rectum The prostate was measured in 3 dimensions Total volume equals 75 gm No cystic structures were noted Yes calcifications were noted at the surgical margin The prostate was otherwise homogeneous in nature An ultrasound-guided pudendal nerve block was performed using 10 cc of 1% lidocaine. 8 cc was placed at the base and 2 cc of the apex. A 12 core biopsy was performed with 6 cores each side. Two cores were taken at the apex, mid and base. Cores were spaced between lateral and medial. He tolerated the procedure well. Was able to ambulate to bathroom after 5 minutes. Printed instructions regarding antibiotic use and common side effects such as low-grade temperature, potential infection and bleeding were given Pathology: 12 core prostate biopsy.
[2022-12-03 08:28] VITALS: BP 175/108; PULSE 80; RESP 16; O2SAT 96
[2022-12-03 08:43] VITALS: BP 149/91
== END 2022-12-03 07:49 | disposition home or self-care (01) ==
LOC: HO.MS 07:48
PROVIDERS: PCP Internal Medicine; Visit Provider Urology
PROC: (CPT 55700; principal; 2022-12-03 08:00)
DX: R97.20 Elevated prostate specific antigen [PSA] (principal)
CPT/HCPCS: 55700; 76942; 88305

== ENCOUNTER → 2022-12-03 07:48 | Outpatient (BNV) | payer OTHER, SELFPAY | PROVIDERS: PCP Internal Medicine; Visit Provider Urology | DX: R97.20 Elevated prostate specific antigen [PSA] (principal) | CPT/HCPCS: 55700; 76942 ==

== ENCOUNTER 2022-12-18 09:38 | Outpatient (AMB) | payer OTHER, SELFPAY ==
--- NOTE | 2022-12-18 10:09 | A.OFFVIS_ITS ---
Intake Intake Visit Reasons: Bx results Allergies No Known Allergies [No Known Allergies*] Allergy (Verified 11/30/22 15:49) Medication List - Last Reconciled 12/18/22 by Antoni Karimi MD aspirin 81 mg PO DAILY 90 days atorvastatin 80 mg PO DAILY 90 days blood pressure monitor (Blood Pressure Kit) As directed clonidine HCl 0.2 mg PO Q12H 90 days finasteride 5 mg PO DAILY 90 days lisinopril 20 mg PO DAILY 90 days metoprolol tartrate 12.5 mg (1/2 x 25 mg) PO BID 90 days tamsulosin 0.4 mg PO BEDTIME 90 days HPI HPI Comments History of Present Illness Details Ramses is a very pleasant male. He is a patient Dr. [place]. 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 PSA 07/15 9, 02/14 4.0 F14%, 08/16 5.0 FH - Not aware Comorbids - DM HBA1c% 6.6 Prostate Biopsy 11/15 Neg - chronic inflammation Calcified renal cyst Detected on imaging Lower urinary tract symptoms Initial presentation with hesitancy and nocturia Good response to tamsulosin Current therapy tamsulosin PFSH Medical History (Updated 11/30/22 @ 16:20 by León Vo MD) Benign essential hypertension Benign prostatic hyperplasia with urinary frequency Chronic gastritis Coronary artery disease Diabetes mellitus Elevated PSA Gastritis H pylori ulcer Hyperlipidemia Left renal mass Obesity (BMI 30-39.9) Overweight (BMI 25.0-29.9) Pure hypercholesterolemia Varicose veins of lower extremities with other complications Surgical History (Updated 11/30/22 @ 16:16 by León Vo MD) H/O colonoscopy H/O nasal polypectomy History of coronary artery stent placement (~10/2020) Status post endovenous radiofrequency ablation of saphenous vein (~2022) Family History Father No problems noted. Mother No problems noted. 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 Cognitive needs: No Hearing needs: No Vision needs: No Review of Systems Const All systems reviewed & are unremarkable except as noted in HPI and below Reports no additional complaints Resp Reports no additional complaints GI Reports no additional complaints Reports as per HPI Musc Reports no additional complaints Physical Exam Telemedicine evaluation Appropriate responses Regular breathing rate and rhythm HEENT Head: Yes normal to inspection Ears: hearing grossly normal bilaterally Eyes General: appearance normal, both eyes and all related structures Neck Neck: Yes normal visual inspection Chest Chest palpation & inspection: normal inspection of the chest Resp Effort & Inspection: normal respiratory effort and able to speak in complete sentences Assessment & Plan Assessment & Plan (1) Benign prostatic hyperplasia with urinary frequency: Code(s): N40.1 - Benign prostatic hyperplasia with lower urinary tract symptoms; R35.0 - Frequency of micturition (2) Renal calculus, left: Code(s): N20.0 - Calculus of kidney Plan Six month follow-up PSA Orders: Orders PSA,Total (Free>4and<10) 6 Months N40.1 - Benign prostatic hyperplasia with lower urinary tract symptoms, R35.0 - Frequency of micturition Medications: New finasteride 5 mg PO DAILY 90 days 90 tabs 1RF Patient Instructions: Imaging studies, laboratory and physical exam results were discussed and reviewed in detail. No major barriers to patient understanding were identified. An opportunity to ask questions regarding the treatment plan was provided. All questions were answered. The patient expressed understanding and agreement with the above treatment plan. The patient is aware they should contact our office by phone for worsening of their current condition or the appearance of new urologic symptoms. Compliance is encouraged with any medications and followup testing that is ordered. It is a privilege to participate in the urologic care of your patient. If you have any questions or concerns regarding treatment for the above conditions, or other urologic issues, please do not hesitate to contact me. The office tele phone contact is [phone]. This note is constructed using voice recognition software. While every effort has been made to ensure accuracy dry cleaner presser errors may have been included. Yours sincerely, Dr Antoni Karimi MD, [facility] Providers of Expert, Compassionate Care for the Genitourinary System Telehealth Telehealth Location of provider rendering services: practice address Location of patient: address on file Patient Identification confirmed using: Name, : Yes Telehealth method: video Patient verbally consented to treatment: Yes Patient verbally consented to billing insurance company: Yes Patient informed of any privacy concerns related to visit: Yes Coding Level of Care Code Tele Est Pt Level 3 (26457) Diagnoses Benign prostatic hyperplasia with urinary frequency N40.1; R35.0 Renal calculus, left N20.0
== END 2022-12-18 10:25 | disposition home or self-care (01) ==
LOC: HO.HUSH 09:38
PROVIDERS: PCP Internal Medicine; Visit Provider Urology
DX: N40.1 Benign prostatic hyperplasia with lower urinary tract symptoms (principal); R35.0 Frequency of micturition; N20.0 Calculus of kidney
CPT/HCPCS: 99213

== ENCOUNTER → 2022-12-18 09:38 | Outpatient (BNVA) | payer OTHER, SELFPAY | PROVIDERS: PCP Internal Medicine; Visit Provider Urology ==

== ENCOUNTER 2023-01-02 09:23 | Outpatient (REF) | payer OTHER, SELFPAY ==
[2023-01-02 09:40] LABS: MANUAL DIFF FLAG NO
[2023-01-02 10:30] LABS: Basophils Absolute Auto 0.1 X10*3/uL (0.0-0.2); Eosinophils Absolute Auto 0.1 X10*3/uL (0.0-0.4); Eosinophils Percent Auto 2.1 % (0-4); Hematocrit 46.7 % (42.0-52.0); Hemoglobin 15.6 g/dl (14.0-18.0); Imm Gran Abs Auto 0.02 X10*3/uL (0.00-0.03); Imm Gran Pct Auto 0.4 % (0.0-0.4); Lymphocytes Absolute Auto 1.4 X10*3/uL (1.2-4.9); Lymphocytes Percent Auto 26.7 % (20-40); Mean Corpuscular HGB Conc 33.4 g/dl (31.0-36.0); Mean Corpuscular Hemoglobin 29.8 pg (27.0-33.0); Mean Corpuscular Volume 89.1 fL (80.0-98.0); Monocytes Absolute Auto 0.5 X10*3/uL (0.1-1.2); Neutrophils Absolute Auto 3.1 x10*3/uL (2.0-8.3); Neutrophils Percent Auto 59.8 % (45-73); Red Blood Count 5.24 X10*6/uL (4.60-5.80); Red Cell Distribution Width 14.4 % (11.0-16.0); White Blood Count 5.2 X10*3/uL (4.8-10.8)
[2023-01-02 11:23] LABS: Appearance Urine Clear; Color Urine Yellow; Glucose Urine UA Negative (Negative); Leukocyte Esterase Urine Negative (Negative); Nitrite Urine Negative (Negative); PH 7.5 (5.0-9.0); Specific Gravity - Urine 1.015 (1.005-1.025); Urine Blood Negative (Negative); Urine Ketones Negative (Negative); Urine Protein Negative (Neg-Trace)
[2023-01-02 11:26] LABS: Alanine Aminotransferase 43 U/L (0-40); Albumin Level 4.2 g/dL (3.5-5.0); Alkaline Phosphatase 79 U/L (39-117); Anion Gap 10 (12-20); Aspartate Amino Transferase 31 U/L (5-37); Bilirubin Total 0.8 mg/dL (0.0-1.0); Blood Urea Nitrogen 15 mg/dL (9-16); Calcium 9.2 mg/dL (8.4-10.2); Carbon Dioxide 27 mmol/L (22-29); Chloride 109 mmol/L (96-108); Cholesterol 128 mg/dL (<200); Estimated Glomerular Filt Rate > 60; Glucose Fasting 101 mg/dL (60-99); Glucose Random 101 mg/dL (60-115); HDL Cholesterol 56 mg/dL (>40); LDL Cholesterol Calculated 61 mg/dL (<100); Sodium 142 mmol/L (135-145); Total Protein 6.7 g/dL (6.5-8.0); Triglycerides 55 mg/dL (<150)
[2023-01-02 11:34] LABS: TSH reflex Free T4 1.28 uIU/mL (0.32-4.0); Vitamin D 25-OH Total 43.6 ng/mL (>30)
[2023-01-02 12:07] LABS: Estimated Average Glucose 111 mg/dL; Hemoglobin A1C 150.3585 umol/L; Hemoglobin A1c % 5.5 % (<6.0)
[2023-01-02 12:20] LABS: Creatinine Urine 99.08 mg/dL; Microalbumin Urine < 5.0 mg/L
== END 2023-01-02 09:24 | disposition home or self-care (01) ==
LOC: HO.LAB 09:23
PROVIDERS: PCP Internal Medicine; Visit Provider Internal Medicine
DX: E11.9 Type 2 diabetes mellitus without complications (principal); N28.89 Other specified disorders of kidney and ureter; R30.0 Dysuria; E55.9 Vitamin D deficiency, unspecified; I10 Essential (primary) hypertension; E78.00 Pure hypercholesterolemia, unspecified
CPT/HCPCS: 36415; 80048; 80053; 80061; 81003; 82043; 82306; 82570; 83036; 84443; 85025

== ENCOUNTER 2023-01-07 15:32 | Outpatient (REF) | payer OTHER, SELFPAY ==
--- NOTE | ~2023-01-07 | CT_ITS ---
EXAMINATION: CT ABDOMEN WITHOUT AND WITH CONTRAST CLINICAL INFORMATION: Follow-up renal cyst. COMPARISON: CT abdomen 05/26/2021. TECHNIQUE: Contiguous axial thin section helical images of the abdomen were performed before and after the administration of 85 mL of Omnipaque 350 intravenous contrast. The data set was reformatted in the coronal and sagittal planes and reviewed on an independent workstation. This CT examination was performed using dose optimization techniques as appropriate, variously including the following: *Automated exposure control *Adjustment of mA and/or kV according to patient size (this includes techniques or standardized protocols for targeted exams where dose is matched to indication/reason for exam; i.e. extremities or head) *Use of iterative reconstruction technique DLP: 501 mGy-cm FINDINGS: LUNG BASES: No suspicious lung nodules. LIVER, GALLBLADDER, AND BILIARY TREE: Liver is normal in size and attenuation. The liver capsular surface is smooth. No discrete liver mass. No biliary ductal dilatation. The gallbladder appears normal. PANCREAS: No discrete pancreatic mass. No pancreatic ductal dilatation. SPLEEN: Normal. ADRENAL GLANDS AND KIDNEYS: No adrenal mass. Symmetric nephrograms. 5 mm 530 HU nonobstructing calculus in the posterior mid left kidney 7.5 cm from the posterolateral skin surface. No hydroureteronephrosis. Exophytic cyst from the upper pole left kidney measures 2.4 x 2.4 x 2.8 cm with mildly and peripheral calcification along its inferior wall. No internal septation. Noncontrast attenuation is 13 HU, postcontrast attenuation is 17 HU. Findings are consistent with nonenhancement. Previously this measured 2.3 x 2.1 x 2.6 cm when measured similarly. BOWEL LOOPS: Included small and large bowel loops are unremarkable. No mesenteric mass or fluid. LYMPH NODES: No lymphadenopathy. VASCULAR: Mild aortoiliac atherosclerosis. BONES: Degenerative changes in the spine. CT/CT abdomen wo/w IV con IMPRESSION: No significant change in appearance of the complex cyst in the left upper kidney. Considered Bosniak 2F. Annual follow-up recommended. 5 mm nonobstructing calculus in the mid left kidney. Fleischner guidelines were followed.
[2023-01-07] MEDS: iohexoL 350 MG/ML 100 ML INFUS..BTL IV (16:18)
== END 2023-01-07 15:33 | disposition home or self-care (01) ==
LOC: HO.CT 15:32
PROVIDERS: Visit Provider Internal Medicine
DX: R10.9 Unspecified abdominal pain (principal); N28.89 Other specified disorders of kidney and ureter
CPT/HCPCS: 74170; Q9967

== ENCOUNTER 2023-06-12 07:59 | Outpatient (REF) | payer OTHER, SELFPAY ==
[2023-06-12 09:50] LABS: PSA,Total (Free>4and<10) 2.58 ng/mL (0.00-4.00)
== END 2023-06-12 08:00 | disposition home or self-care (01) ==
LOC: HO.LAB 07:59
PROVIDERS: PCP Internal Medicine; Visit Provider Urology
DX: Z12.5 Encounter for screening for malignant neoplasm of prostate (principal); R35.0 Frequency of micturition; N40.1 Benign prostatic hyperplasia with lower urinary tract symptoms
CPT/HCPCS: 36415; 84153

== ENCOUNTER 2023-06-24 09:18 | Outpatient (AMB) | payer OTHER, SELFPAY ==
--- NOTE | 2023-06-24 09:27 | A.OFFVIS_ITS ---
Intake Intake Visit Reasons: 6M PSA(set)Confirmed Intake Note: Patient presents today for a follow-up Meds- Tamsulosin, Finasteride Allergies to Antibiotic- No Known Allergies Blood Thinner- Aspirin Post Void Residual:27 Fur Blower Required: No Accompanied by: Self / Same As Patient Allergies No Known Allergies [No Known Allergies*] Allergy (Verified 06/24/23 09:39) HPI HPI Comments History of Present Illness Details Ramses is a very pleasant male. He is a patient Dr. [place]. He seen for the following urologic conditions - elevated PSA - calcified renal cyst - lower urinary tract symptoms PSA falling 2.6 Remains on finasteride Has had mild decline in libido. Recommend cutting finasteride back to Wednesday, Wednesday, Wednesday Thinks he passed kidney stone. Did have prior stone in 2017. Plan on ultrasound Discussed renal stone triggers including abdomen is. He is interested in starting vitamin B6. Information provided for him to obtain Six-month follow-up Elevated PSA COVID prostatitis been 1 month on ventilator PSA 07/15 9, 02/14 4.0 F14%, 08/16 5.0, 06/19 2.6 FH - Not aware Comorbids - DM HBA1c% 6.6 Prostate Biopsy 11/15 Neg - chronic inflammation Calcified renal cyst Detected on imaging Lower urinary tract symptoms Initial presentation with hesitancy and nocturia Good response to tamsulosin Current therapy tamsulosin [facility] Medical History Varicose veins of lower extremities with other complications Diabetes mellitus Obesity (BMI 30-39.9) Coronary artery disease Benign prostatic hyperplasia with urinary frequency Pure hypercholesterolemia Left renal mass Overweight (BMI 25.0-29.9) Chronic gastritis H pylori ulcer Hyperlipidemia Elevated PSA Gastritis Benign essential hypertension Surgical History Status post endovenous radiofrequency ablation of saphenous vein (~2022) History of coronary artery stent placement (~10/2020) H/O colonoscopy H/O nasal polypectomy Family History Father No problems noted. Mother No problems noted. 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 Cognitive needs: No Hearing needs: No Vision needs: No Review of Systems Const Denies chills and Denies fever(s) Card Reports no additional complaints and Denies syncope Resp Denies cough GI Denies abdominal pain and Denies heartburn Reports as per HPI and Denies change in libido Neuro Denies syncope Psych Denies change in libido Endo Denies change in libido Physical Exam Const General: cooperative, healthy appearing, comfortable and no acute distress Orientation/consciousness: patient oriented x3 HEENT Face and sinus: Yes normal facial exam Mouth: moist mucous membranes Neck Neck: Yes normal visual inspection, Yes full ROM and Yes trachea midline Chest Chest palpation & inspection: normal inspection of the chest Resp Effort & Inspection: normal respiratory effort, able to speak in complete sentences and no respiratory distress GI Inspection: Yes normal to inspection Back/Spine/Pelvis Cervical Spine: normal cervical lordosis Thoracic/Lumbar Spine: thoracic and lumbar spine normal to inspection Skin General skin exam: no rashes or lesions noted Neuro General: patient oriented x3, gait normal, tone normal and moves all extremities Extrem General: Yes normal to inspection and Yes capillary refill normal Office Procedures Post Void Residual Post Residual Void Post Void Residual (PVR): 27 35062-Rfwq Void Residual by ultrasound Assessment & Plan Assessment & Plan (1) Renal calculus, left: Code(s): N20.0 - Calculus of kidney (2) Elevated PSA: Code(s): R97.20 - Elevated prostate specific antigen [PSA] (3) BPH w urinary obs/LUTS: Code(s): N40.1 - Benign prostatic hyperplasia with lower urinary tract symptoms; N13.8 - Other obstructive and reflux uropathy Plan Six-month follow-up Orders: Orders US renal BI Today N20.0 - Calculus of kidney AMB Post Void Residual by ultrasound Today R33.9 - Retention of urine, unspecified Prostate Specific Antigen 6 Months R97.20 - Elevated prostate specific antigen [PSA] Patient Instructions: Imaging studies, laboratory and physical exam results were discussed and reviewed in detail. No major barriers to patient understanding were identified. An opportunity to ask questions regarding the treatment plan was provided. All questions were answered. The patient expressed understanding and agreement with the above treatment plan. The patient is aware they should contact our office by phone for worsening of their current condition or the appearance of new urologic symptoms. Compliance is encouraged with any medications and followup testing that is ordered. It is a privilege to participate in the urologic care of your patient. If you have any questions or concerns regarding treatment for the above conditions, or other urologic issues, please do not hesitate to contact me. The office telephone contact is [phone]. This note is constructed using voice recognition software. While every effort has been made to ensure accuracy blender machine operator errors may have been included. Yours sincerely, Dr Antoni Karimi MD, NELIDA [facility] - Urology Providers of Expert, Compassionate Care for the Genitourinary System Coding Level of Care Code Est Pt Level 4 (30042) Diagnoses Renal calculus, left N20.0 Elevated PSA R97.20 BPH w urinary obs/LUTS N40.1; N13.8 CPT Codes Post Residual Void - PVR CPT Code: 22759-[id number] Void Residual by ultrasound ([id number])
== END 2023-06-24 09:55 | disposition home or self-care (01) ==
PROVIDERS: PCP Internal Medicine; Visit Provider Urology
DX: N20.0 Calculus of kidney (principal); R97.20 Elevated prostate specific antigen [PSA]; N40.1 Benign prostatic hyperplasia with lower urinary tract symptoms; N13.8 Other obstructive and reflux uropathy
CPT/HCPCS: 99214

== ENCOUNTER → 2023-06-24 09:18 | Outpatient (BNVA) | payer OTHER, SELFPAY | PROVIDERS: PCP Internal Medicine; Visit Provider Urology | DX: N20.0 Calculus of kidney (principal); R97.20 Elevated prostate specific antigen [PSA]; N40.1 Benign prostatic hyperplasia with lower urinary tract symptoms; N13.8 Other obstructive and reflux uropathy; R33.8 Other retention of urine | CPT/HCPCS: 51798 ==

== ENCOUNTER 2023-06-26 08:58 | Outpatient (REF) | payer OTHER, SELFPAY ==
[2023-06-26 09:23] LABS: MANUAL DIFF FLAG NO
[2023-06-26 10:08] LABS: Basophils Percent Auto 0.7 % (0-2); Eosinophils Absolute Auto 0.1 X10*3/uL (0.0-0.4); Eosinophils Percent Auto 1.5 % (0-4); Hematocrit 45.8 % (42.0-52.0); Hemoglobin 15.3 g/dl (14.0-18.0); Imm Gran Abs Auto 0.04 X10*3/uL (0.00-0.03); Imm Gran Pct Auto 0.7 % (0.0-0.4); Lymphocytes Absolute Auto 1.4 X10*3/uL (1.2-4.9); Lymphocytes Percent Auto 23.6 % (20-40); Mean Corpuscular HGB Conc 33.4 g/dl (31.0-36.0); Mean Corpuscular Hemoglobin 29.4 pg (27.0-33.0); Mean Corpuscular Volume 87.9 fL (80.0-98.0); Monocytes Absolute Auto 0.5 X10*3/uL (0.1-1.2); Neutrophils Percent Auto 65.5 % (45-73); Platelet Count 237 X10*3/uL (160-400); Red Blood Count 5.21 X10*6/uL (4.60-5.80); Red Cell Distribution Width 13.3 % (11.0-16.0); White Blood Count 6.1 X10*3/uL (4.8-10.8)
[2023-06-26 10:11] LABS: Estimated Average Glucose 120 mg/dL; Hemoglobin A1C 149.7904 umol/L; Hemoglobin A1c % 5.8 % (<6.0)
[2023-06-26 10:13] LABS: Appearance Urine Clear; Color Urine Yellow; Glucose Urine UA Negative (Negative); Leukocyte Esterase Urine Negative (Negative); Nitrite Urine Negative (Negative); PH 8.5 (5.0-9.0); Specific Gravity - Urine 1.015 (1.005-1.025); Urine Blood Negative (Negative); Urine Ketones Negative (Negative); Urine Protein Negative (Neg-Trace)
[2023-06-26 10:23] LABS: Alanine Aminotransferase 29 U/L (0-40); Albumin Level 3.8 g/dL (3.5-5.0); Alkaline Phosphatase 79 U/L (39-117); Anion Gap 11 (12-20); Aspartate Amino Transferase 25 U/L (5-37); Bilirubin Total 0.8 mg/dL (0.0-1.0); Blood Urea Nitrogen 13 mg/dL (9-16); Calcium 9.2 mg/dL (8.4-10.2); Carbon Dioxide 29 mmol/L (22-29); Chloride 109 mmol/L (96-108); Cholesterol 115 mg/dL (<200); Estimated Glomerular Filt Rate > 60; Glucose Random 102 mg/dL (60-115); HDL Cholesterol 46 mg/dL (>40); LDL Cholesterol Calculated 58 mg/dL (<100); Potassium 4.3 mmol/L (3.3-5.1); Sodium 145 mmol/L (135-145); Total Protein 6.4 g/dL (6.5-8.0); Triglycerides 55 mg/dL (<150)
[2023-06-26 10:36] LABS: Prostate Specific Antigen 3.62 ng/mL (<0.05-4.0)
[2023-06-26 10:38] LABS: Thyroid Stimulating Hormone 0.64 uIU/mL (0.32-4.0); Vitamin D 25-OH Total 39.5 ng/mL (>30)
== END 2023-06-26 08:59 | disposition home or self-care (01) ==
LOC: HO.LAB 08:58
PROVIDERS: Urology; PCP Internal Medicine; Visit Provider Internal Medicine
DX: Z12.5 Encounter for screening for malignant neoplasm of prostate (principal); R97.20 Elevated prostate specific antigen [PSA]; E55.9 Vitamin D deficiency, unspecified; R30.0 Dysuria; E78.00 Pure hypercholesterolemia, unspecified; E11.9 Type 2 diabetes mellitus without complications
CPT/HCPCS: 36415; 80053; 80061; 81003; 82306; 83036; 84153; 84443; 85025

== ENCOUNTER 2023-07-02 15:44 | Outpatient (AMB) | payer OTHER, SELFPAY ==
--- NOTE | 2023-07-02 15:54 | MHC.PC.OV ---
Vital Signs 07/02/23 15:56 Height 5 ft 11 in Weight 207 lb 8 oz BMI 28.9 BP 120/74 Blood Pressure Location Lt brachial Position Sitting Pulse 64 Pulse Source Pulse Oximeter Pulse Oximetry (%) 96 Oxygen Delivery Method Room Air Intake Visit Reasons: 4 month f/u Intake Note: Patient is here to follow up on DM, CAD, HTN. Steel Tier Required: No Blow Molding Machine Operator: Not Required per policy Accompanied by: Self / Same As Patient Allergies No Known Allergies [No Known Allergies*] Allergy (Verified 07/02/23 16:31) Medication List - Last Reconciled 07/02/23 by León Vo MD aspirin 81 mg PO DAILY 90 days atorvastatin 80 mg PO DAILY 90 days clonidine HCl 0.2 mg PO Q12H 90 days finasteride 5 mg PO DAILY 90 days lisinopril 20 mg PO DAILY 90 days metoprolol tartrate 12.5 mg (1/2 x 25 mg) PO BID 90 days tamsulosin 0.4 mg PO BEDTIME 90 days Tobacco use date assessed: 07/02/23 Dental Screening Dental Screen Date: 07/02/23 Did you have a dental visit in the last 12 months?: No Did you have a dental problem in the last 6 months where you did not have access to dental care?: No Was dental information given to patient?: No HPI 4 month f/u HPI Details Patient comes in today for his follow up visit States that he feels okay He denies any headaches or dizziness Denies any chest pains, no SOB No nausea/vomiting, no abdominal pain No change in bowel habits noted Had his follow up labs done last week - to discuss his results [facility] Medical History Varicose veins of lower extremities with other complications Diabetes mellitus Obesity (BMI 30-39.9) Coronary artery disease Benign prostatic hyperplasia with urinary frequency Pure hypercholesterolemia Left renal mass Overweight (BMI 25.0-29.9) Chronic gastritis H pylori ulcer Hyperlipidemia Elevated PSA Gastritis Benign essential hypertension Surgical History Status post endovenous radiofrequency ablation of saphenous vein (~2022) History of coronary artery stent placement (~10/2020) H/O colonoscopy H/O nasal polypectomy Family History Father No problems noted. Mother No problems noted. 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 1. Little interest or pleasure in doing things: not at all 2. Feeling down, depressed, or hopeless: not at all 3. Trouble falling or staying asleep, or sleeping too much: not at all 4. Feeling tired or having little energy: not at all 5. Poor appetite or overeating: not at all 6. Feeling bad about yourself - or that you are a failure or have let yourself or your family down: not at all 7. Trouble concentrating on things, such as reading the newspaper or watching television: not at all 8. Moving or speaking so slowly that other people could have noticed. Or the opposite - being so fidgety or restless that you have been moving around a lot more than usual: not at all 9. Thoughts that you would be better off or of hurting yourself in some way: not at all Total score: 0 Depression Screening Interpretation: Negative Depression Screening Done: Yes 99715 - PHQ-9 Billing: Yes Source: Developed by Drs. Raul Brown, Riana Kincaid, Rocky Ricci and colleagues, with an educational andrés from [employer]. Thrive Questionnaire Date Thrive assessed: 07/02/23 I am a: Patient What is your living situation today?: I have a steady place to live Within the past 12 months, did the food you bought not last and you didn't have the money to get more?: Never true Within the past 12 months, did you worry whether your food would run out before you got money to buy more?: Never true Do you have trouble paying for medicines?: No Do you have trouble getting transportation to medical appointments?: No Do you have trouble paying your heating and electricity bill?: No Do you have trouble taking care of your child, family member or friend?: No Do you have trouble with day-to-day activities such as bathing, preparing meals, shopping, managing finances, etc.?: No Are you currently unemployed and looking for a job?: No Are you interested in more education?: No Currently or been in a relationship where the following occur: no concerns reported THRIVE Score: 0 AUDIT C Alcohol Use Questionnaire (AUDIT-C) 1. How often do you have a drink containing alcohol?: Monthly or less 2. How many drinks containing alcohol do you have on a typical day when you are drinking?: 1 or 2 Total Score: 1 Score Reviewed/Action Taken: Yes ELROY-7 AMB Questionnaire ELROY-7 Date ELROY - 7 assessed: 07/02/23 Feeling nervous, anxious, or on edge: 0 = Not at all Not being able to stop or control worryin = Not at all Worrying too much about different things: 0 = Not at all Trouble relaxin = Not at all Being so restless that it is hard to sit still: 0 = Not at all Becoming easily annoyed or irritable: 0 = Not at all Feeling afraid as if something awful might happen: 0 = Not at all Total ELROY-7 score (0-4 normal; 5-9 mild; 10-14 moderate; 15-21 severe): 0 Source: Developed by Drs. Raul Brown, Riana Kincaid, Rocky Ricci and colleagues, with an educational andrés from [employer]. Physical exam (Primary Care) Vital Signs: Last Vital Signs Pulse 64 07/02/23 15:56 BP 120/74 07/02/23 15:56 Pulse Ox 96 07/02/23 15:56 Oxygen Delivery Method Room Air 07/02/23 15:56 BMI result Body Mass Index 28.9 Tobacco/Smoking Status: Tobacco use Status Tobacco use date assessed 07/02/23 07/02/23 15:59 Patient Tobacco Use Status Never used Tobacco 07/02/23 15:59 e-Cigarette/Vaping Use Never Used 07/02/23 15:59 PHQ-9: PHQ-9 Score PHQ-9: Total score 0 07/02/23 15:59 Depression Screening Interpretation: Negative Thrive Assessment: Date of Thrive Assessment Date Thrive assessed 07/02/23 07/02/23 15:59 Currently or been in a relationship where the following occur: no concerns reported Results Reviewed Results Reviewed: Laboratory Tests 06/26/23 06/26/23 09:20 09:23 WBC 6.1 Hgb 15.3 Hct 45.8 Plt Count 237 Sodium 145 Potassium 4.3 Creatinine 0.98 Estimated GFR > 60 Random Glucose 102 Hemoglobin A1c % 5.8 Calcium 9.2 AST 25 ALT 29 Triglycerides 55 Cholesterol 115 LDL Cholesterol, Calc 58 HDL Cholesterol 46 Prostate Specific Ag 3.62 25-OH Vitamin D Total 39.5 TSH 0.64 Ur Specific [place] 1.015 Urine Protein Negative Urine Glucose (UA) Negative Urine Blood Negative Urine Nitrite Negative Ur Leukocyte Esterase Negative Assessment and Plan Assessment & Plan (1) Coronary artery disease: Comment: S/P NSTEMI in 10/2020; (+) ROSALIO to OM-1 / circumflex artery Code(s): I25.10 - Atherosclerotic heart disease of [place] coronary artery without angina pectoris Qualifiers: Coronary Disease-Associated Artery/Lesion type: [place] artery [place] vs. transplanted heart: [place] heart Associated angina: without angina Qualified Code(s): I25.10 - Atherosclerotic heart disease of [place] coronary artery without angina pectoris Plan: S/P NSTEMI in 10/2020 requiring ROSALIO to circumflex artery S/P Ticagrelor 90 mg BID x 1 year Patient is currently asymptomatic from cardiac standpoint Continue lifelong low dose Aspirin therapy at 81 mg QD and Metoprolol 12.5 mg BID Follow up with cardiology as scheduled (2) Pure hypercholesterolemia: Code(s): E78.00 - Pure hypercholesterolemia, unspecified Plan: Results of his labs done last week reviewed and discussed with patient Reinforced low cholesterol diet Continue Atorvastatin 80 mg QD Will recheck his labs and fasting lipids in 4 months for follow up (3) Benign essential hypertension: Code(s): I10 - Essential (primary) hypertension Plan: Reinforced low sodium diet - goal is systolic BP of 120 mm or less Continue Lisinopril 20 mg QD, Metoprolol 12.5 mg BID and Clonidine 0.2 mg BID (4) Diabetes mellitus: Code(s): E11.9 - Type 2 diabetes mellitus without complications Qualifiers: Diabetes mellitus type: type 2 Diabetes mellitus half-way insulin use: without terminal block assembler use Diabetes mellitus complication status: without complication Qualified Code(s): E11.9 - Type 2 diabetes mellitus without complications Plan: His HgbA1c was at 5.8% on his labs done last week (was previously at 5.6% a few months ago) - goal is at least <6.5% Reinforced diabetic diet; patient declined offer to start him on Rx previously and wanted to go with diet modification, exercise and weight loss and he has been able to successfully get his blood sugar under control Reinforced diabetic diet (5) Left renal mass: Code(s): N28.89 - Other specified disorders of kidney and ureter Plan: Repeat abdominal CT done most recently in December 2022 for his left renal mass came out benign - mass is a nonenhancing stable 1.9 cm cystic lesion in the upper pole of the left kidney with thick peripheral calcifications that could potentially obscure peripheral mural nodules. This is classified as a Bosniak 2F lesion and it was recommended that he get a follow-up CT again in a year's time to ensure stability Follow up with urology as scheduled (6) Renal calculus, left: Code(s): N20.0 - Calculus of kidney Plan: (+) NON-OBSTRUCTING stones seen in the left kidney incidentally on his recent abdominal CT Patient is currently asymptomatic and does not require any intervention at this time Encouraged to increase his oral fluids Follow up with urology as scheduled (7) Varicose veins of lower extremities with other complications: Code(s): I83.893 - Varicose veins of bilateral lower extremities with other complications Plan: S/P right great saphenous vein ablation with venaseal by Dr. Levy early last year (2022) with (+) improvement of his leg symptoms Was advised that he also has venous reflux on his left leg but as he has very little symptoms on the left leg, no intervention is needed at the time Follow up with vascular surgery as scheduled (8) Benign prostatic hyperplasia with urinary frequency: Code(s): N40.1 - Benign prostatic hyperplasia with lower urinary tract symptoms; R35.0 - Frequency of micturition Plan: Continue Tamsulosin 0.4 mg Q HS Prostate Bx done last year reportedly came back negative Follow up with urology as scheduled (9) Overweight (BMI 25.0-29.9): Code(s): E66.3 - Overweight Plan: Reinforced diet/exercise as tolerated/lose weight Plan Follow up in 4 months Orders: Orders Lipid Panel 4 Months E78.00 - Pure hypercholesterolemia, unspecified TSH reflex Free T4 4 Months E78.00 - Pure hypercholesterolemia, unspecified UA CC w/rflx Micro + Cult 4 Months R30.0 - Dysuria Vitamin D 25-OH Total 4 Months E55.9 - Vitamin D deficiency, unspecified Complete Blood Count Auto Diff 4 Months D64.9 - Anemia, unspecified Comprehensive [place]. Panel Fast 4 Months E78.00 - Pure hypercholesterolemia, unspecified Hemoglobin A1c 4 Months E11.9 - Type 2 diabetes mellitus without complications Coding Level of Care Code Est Pt Level 4 (17897) Diagnoses Coronary artery disease involving [place] coronary artery of [place] heart without angina pectoris I25.10 Coronary Disease-Associated Artery/Lesion type: [place] artery [place] vs. transplanted heart: [place] heart Associated angina: without angina Pure hypercholesterolemia E78.00 Benign essential hypertension I10 Type 2 diabetes mellitus without complication, without long-term current use of insulin E11.9 Diabetes mellitus type: type 2 Diabetes mellitus half-way insulin use: without half-way use Diabetes mellitus complication status: without complication Left renal mass N28.89 Renal calculus, left N20.0 Varicose veins of lower extremities with other complications I83.893 Benign prostatic hyperplasia with urinary frequency N40.1; R35.0 Overweight (BMI 25.0-29.9) E66.3
[2023-07-02 15:56] VITALS: BP 120/74; PULSE 64; O2SAT 96; BMI 28.9
== END 2023-07-02 16:40 | disposition home or self-care (01) ==
PROVIDERS: PCP Internal Medicine; Visit Provider Internal Medicine
DX: I25.10 Atherosclerotic heart disease of native coronary artery without angina pectoris (principal); E78.00 Pure hypercholesterolemia, unspecified; I10 Essential (primary) hypertension; E11.9 Type 2 diabetes mellitus without complications; N28.89 Other specified disorders of kidney and ureter; N20.0 Calculus of kidney; I83.893 Varicose veins of bilateral lower extremities with other complications; N40.1 Benign prostatic hyperplasia with lower urinary tract symptoms; R35.0 Frequency of micturition; E66.3 Overweight
CPT/HCPCS: 99214

== ENCOUNTER 2024-01-01 07:24 | Outpatient (REF) | payer OTHER, SELFPAY ==
[2024-01-01 08:06] LABS: MANUAL DIFF FLAG NO
[2024-01-01 08:23] LABS: Basophils Percent Auto 0.8 % (0-2); Eosinophils Absolute Auto 0.1 X10*3/uL (0.0-0.4); Eosinophils Percent Auto 1.3 % (0-4); Hematocrit 45.8 % (42.0-52.0); Imm Gran Abs Auto 0.02 X10*3/uL (0.00-0.03); Imm Gran Pct Auto 0.4 % (0.0-0.4); Lymphocytes Absolute Auto 1.3 X10*3/uL (1.2-4.9); Lymphocytes Percent Auto 24.3 % (20-40); Mean Corpuscular HGB Conc 32.8 g/dl (31.0-36.0); Mean Corpuscular Volume 88.4 fL (80.0-98.0); Mean Platelet Volume 10.3 fL (9.4-12.4); Monocytes Absolute Auto 0.4 X10*3/uL (0.1-1.2); Monocytes Percent Auto 7.9 % (2-11); Neutrophils Absolute Auto 3.4 x10*3/uL (2.0-8.3); Neutrophils Percent Auto 65.3 % (45-73); Platelet Count 237 X10*3/uL (160-400); Red Blood Count 5.18 X10*6/uL (4.60-5.80); Red Cell Distribution Width 14.1 % (11.0-16.0); White Blood Count 5.2 X10*3/uL (4.8-10.8)
[2024-01-01 08:31] LABS: Estimated Average Glucose 131 mg/dL; Hemoglobin A1c % 6.2 % (<6.0)
[2024-01-01 09:01] LABS: Alanine Aminotransferase 33 U/L (0-40); Albumin Level 3.8 g/dL (3.5-5.0); Alkaline Phosphatase 114 U/L (39-117); Anion Gap 11 (12-20); Appearance Urine Turbid; Aspartate Amino Transferase 25 U/L (5-37); Bilirubin Total 1.2 mg/dL (0.0-1.0); Blood Urea Nitrogen 8 mg/dL (9-16); Calcium 9.3 mg/dL (8.4-10.2); Carbon Dioxide 27 mmol/L (22-29); Chloride 108 mmol/L (96-108); Cholesterol 129 mg/dL (<200); Color Urine Dark Yellow; Estimated Glomerular Filt Rate > 60; Glucose Fasting 107 mg/dL (60-99); Glucose Urine UA Negative (Negative); HDL Cholesterol 53 mg/dL (>40); LDL Cholesterol Calculated 62 mg/dL (<100); Leukocyte Esterase Urine Small (1+) (Negative); Nitrite Urine Negative (Negative); PH 7.5 (5.0-9.0); Potassium 4.1 mmol/L (3.3-5.1); Sodium 142 mmol/L (135-145); Total Protein 6.5 g/dL (6.5-8.0); Triglycerides 73 mg/dL (<150); UMIC TRIGGER UACC YES; Urine Blood Negative (Negative); Urine Ketones Negative (Negative); Urine Protein Negative (Neg-Trace)
[2024-01-01 09:09] LABS: Bacteria Urine None Seen (None Seen); Hyaline Casts Urine 0-2 /LPF (0-2); RBC Urine 0-2 /HPF (0-2); Squamous Epithelial Cell Urine 0-2 /HPF (0-2); UACC Culture Trigger YES
[2024-01-01 09:19] LABS: TSH reflex Free T4 0.79 uIU/mL (0.32-4.0); Vitamin D 25-OH Total 57.7 ng/mL (>30)
== END 2024-01-01 07:25 | disposition home or self-care (01) ==
LOC: HO.LAB 07:24
PROVIDERS: PCP Internal Medicine; Referring Provider Urology; Visit Provider Internal Medicine
DX: E78.00 Pure hypercholesterolemia, unspecified (principal); D64.9 Anemia, unspecified; E55.9 Vitamin D deficiency, unspecified; E11.9 Type 2 diabetes mellitus without complications; R30.0 Dysuria
CPT/HCPCS: 36415; 80053; 80061; 81001; 81003; 82306; 83036; 84443; 85025; 87086

== ENCOUNTER 2024-01-05 16:09 | Outpatient (AMB) | payer OTHER, SELFPAY ==
[2024-01-05 16:12] VITALS: BP 124/80; PULSE 53; O2SAT 98; BMI 28.4
--- NOTE | 2024-01-05 16:12 | A.OFFPC_ITS ---
Vital Signs 01/05/24 16:12 Height 5 ft 11 in Weight 203 lb 6 oz BMI 28.4 BP 124/80 Blood Pressure Location Lt brachial Position Sitting Pulse 53 Pulse Source Pulse Oximeter Pulse Oximetry (%) 98 Oxygen Delivery Method Room Air Intake Visit Reasons: follow up Head Mixer Required: No Accompanied by: Self / Same As Patient Allergies No Known Allergies [No Known Allergies*] Allergy (Verified 01/05/24 16:50) Medication List - Last Reconciled 01/05/24 by León Vo MD aspirin 81 mg PO DAILY 90 days atorvastatin 80 mg PO DAILY 90 days clonidine HCl 0.2 mg PO Q12H 90 days finasteride 5 mg PO DAILY 90 days lisinopril 20 mg PO DAILY 90 days metoprolol tartrate 12.5 mg (1/2 x 25 mg) PO BID 90 days Tobacco use date assessed: 01/05/24 Dental Screening Dental Screen Date: 01/05/24 Did you have a dental visit in the last 12 months?: No Did you have a dental problem in the last 6 months where you did not have access to dental care?: No Was dental information given to patient?: Patient has dentist HPI follow up HPI Details Patient comes in today for his follow up visit States that he feels okay He denies any headaches or dizziness Denies any chest pains, no increased SOB No nausea/vomiting, no abdominal pain No change in bowel habits noted He had his follow up labs done a few days ago - to discuss his results [facility] Medical History Varicose veins of lower extremities with other complications Diabetes mellitus Obesity (BMI 30-39.9) Coronary artery disease Benign prostatic hyperplasia with urinary frequency Pure hypercholesterolemia Left renal mass Overweight (BMI 25.0-29.9) Chronic gastritis H pylori ulcer Hyperlipidemia Elevated PSA Gastritis Benign essential hypertension Surgical History Status post endovenous radiofrequency ablation of saphenous vein (~2022) History of coronary artery stent placement (~10/2020) H/O colonoscopy H/O nasal polypectomy Family History Father No problems noted. Mother No problems noted. 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 1. Little interest or pleasure in doing things: not at all 2. Feeling down, depressed, or hopeless: not at all 3. Trouble falling or staying asleep, or sleeping too much: not at all 4. Feeling tired or having little energy: not at all 5. Poor appetite or overeating: not at all 6. Feeling bad about yourself - or that you are a failure or have let yourself or your family down: not at all 7. Trouble concentrating on things, such as reading the newspaper or watching television: not at all 8. Moving or speaking so slowly that other people could have noticed. Or the opposite - being so fidgety or restless that you have been moving around a lot more than usual: not at all 9. Thoughts that you would be better off or of hurting yourself in some way: not at all Total score: 0 Depression Screening Interpretation: Negative Depression Screening Done: Yes 19964 - PHQ-9 Billing: Yes Source: Developed by Drs. Raul Brown, Riana Kincaid, Rocky Ricci and colleagues, with an educational andrés from [employer]. Thrive Questionnaire Date Thrive assessed: 01/05/24 I am a: Patient What is your living situation today?: I have a steady place to live Within the past 12 months, did the food you bought not last and you didn't have the money to get more?: Never true Within the past 12 months, did you worry whether your food would run out before you got money to buy more?: Never true Do you have trouble paying for medicines?: No Do you have trouble getting transportation to medical appointments?: No Do you have trouble paying your heating and electricity bill?: No Do you have trouble taking care of your child, family member or friend?: No Do you have trouble with day-to-day activities such as bathing, preparing meals, shopping, managing finances, etc.?: No Are you currently unemployed and looking for a job?: No Are you interested in more education?: No Please select the resources that you would like help with: None Currently or been in a relationship where the following occur: No concerns reported THRIVE Score: 0 AUDIT C Alcohol Use Questionnaire (AUDIT-C) 1. How often do you have a drink containing alcohol?: Monthly or less 2. How many drinks containing alcohol do you have on a typical day when you are drinking?: 1 or 2 3. How often do you have six or more drinks on one occasion?: Never Total Score: 1 Score Reviewed/Action Taken: Yes ELROY-7 AMB Questionnaire ELROY-7 Date ELROY - 7 assessed: 01/05/24 Feeling nervous, anxious, or on edge: 0 = Not at all Not being able to stop or control worryin = Not at all Worrying too much about different things: 0 = Not at all Trouble relaxin = Not at all Being so restless that it is hard to sit still: 0 = Not at all Becoming easily annoyed or irritable: 0 = Not at all Feeling afraid as if something awful might happen: 0 = Not at all Total ELROY-7 score (0-4 normal; 5-9 mild; 10-14 moderate; 15-21 severe): 0 Source: Developed by Drs. Raul Brown, Riana Kincaid, Rocky Rcici and colleagues, with an educational andrés from [employer]. Review of Systems Const Denies chills, Denies fatigue, Denies fever(s) and Denies headache(s) ENT Denies dysphagia, Denies dizziness, Denies otalgia, Denies headache(s), Denies neck pain, Denies odynophagia and Denies sore throat Card Denies chest pain, Denies palpitations and Denies dyspnea Resp Denies chest congestion, Denies cough and Denies dyspnea GI Denies abdominal pain, Denies constipation, Denies dysphagia, Denies heartburn, Denies diarrhea, Denies nausea, Denies odynophagia and Denies vomiting Denies dysuria, Denies nocturia and Denies urinary frequency Musc Denies back pain and Denies neck pain Skin/Breast Denies rash Neuro Denies dizziness and Denies headache(s) Endo Denies fatigue and Denies palpitations Physical exam (Primary Care) Vital Signs: Last Vital Signs Pulse 53 01/05/24 16:12 BP 124/80 01/05/24 16:12 Pulse Ox 98 01/05/24 16:12 Oxygen Delivery Method Room Air 01/05/24 16:12 BMI result Body Mass Index 28.4 Tobacco/Smoking Status: Tobacco use Status Tobacco use date assessed 01/05/24 01/05/24 16:15 Patient Tobacco Use Status Never used Tobacco 01/05/24 16:15 e-Cigarette/Vaping Use Never Used 01/05/24 16:15 PHQ-9: PHQ-9 Score PHQ-9: Total score 0 01/05/24 16:58 Depression Screening Interpretation: Negative Thrive Assessment: Date of Thrive Assessment Date Thrive assessed 01/05/24 01/05/24 16:15 Currently or been in a relationship where the following occur: No concerns reported Const General: no acute distress and alert HENMT Ears: TM's normal bilaterally and EAC's normal Throat: Yes posterior oropharynx normal and Yes tonsils normal (no TP congestion) Neck Neck: Yes no lymphadenopathy and Yes supple Thyroid: Thyroid normal Resp Auscultation: clear to auscultation bilaterally, no rales and no wheezes Cardio Rate: regular rate Rhythm: regular rhythm Heart sounds: no murmurs GI Palpation (GI): Soft to palpation and nontender Auscultation: normal bowel sounds General: Yes no CVA tenderness Back/Spine/Pelvis Back: no CVA tenderness Thoracic/Lumbar Spine: No lumbar spinal tenderness Skin Rashes: no rashes Extrem General: No clubbing, No cyanosis and Yes pedal edema ((+) trace, bilaterally) Results Reviewed Results Reviewed: Laboratory Tests 01/01/24 08:05 WBC 5.2 Hgb 15.0 Hct 45.8 Plt Count 237 Sodium 142 Potassium 4.1 Creatinine 0.90 Estimated GFR > 60 Fasting Glucose 107 H Hemoglobin A1c % 6.2 H Calcium 9.3 AST 25 ALT 33 Triglycerides 73 Cholesterol 129 LDL Cholesterol, Calc 62 HDL Cholesterol 53 25-OH Vitamin D Total 57.7 TSH 0.79 Ur Specific [place] 1.020 Urine Protein Negative Urine Glucose (UA) Negative Urine Blood Negative Urine Nitrite Negative Ur Leukocyte Esterase Small (1+) H Assessment and Plan Assessment & Plan (1) Coronary artery disease: Comment: S/P NSTEMI in 10/2020; (+) ROSALIO to OM-1 / circumflex artery Code(s): I25.10 - Atherosclerotic heart disease of [place] coronary artery without angina pectoris Qualifiers: Coronary Disease-Associated Artery/Lesion type: [place] artery [place] vs. transplanted heart: [place] heart Associated angina: without angina Qualified Code(s): I25.10 - Atherosclerotic heart disease of [place] coronary artery without angina pectoris Plan: S/P NSTEMI in 10/2020 requiring ROSALIO to circumflex artery S/P Ticagrelor 90 mg BID x 1 year Patient is currently asymptomatic from cardiac standpoint Continue lifelong low dose Aspirin therapy at 81 mg QD and Metoprolol 12.5 mg BID Follow up with cardiology as scheduled (2) Pure hypercholesterolemia: Code(s): E78.00 - Pure hypercholesterolemia, unspecified Plan: Results of his labs done a few days ago reviewed and discussed with patient Reinforced low cholesterol diet Continue Atorvastatin 80 mg QD Will recheck his labs and fasting lipids in 4 months for follow up (3) Benign essential hypertension: Code(s): I10 - Essential (primary) hypertension Plan: Reinforced low sodium diet - goal is systolic BP of 120 mm or less Continue Lisinopril 20 mg QD, Metoprolol 12.5 mg BID and Clonidine 0.2 mg BID (4) Diabetes mellitus: Code(s): E11.9 - Type 2 diabetes mellitus without complications Qualifiers: Diabetes mellitus type: type 2 Diabetes mellitus custodial insulin use: without custodial use Diabetes mellitus complication status: without complication Qualified Code(s): E11.9 - Type 2 diabetes mellitus without complications Plan: His HgbA1c has increased to 6.2% on his labs done a few days ago (was previously at 5.8% a few months ago) - goal is at least <6.5% but should be lower if he does not wish to take any Rx for his condition Reinforced diabetic diet; patient has declined offer again to start him on Rx and wants to continue with diet modification, exercise and weight loss for now as he has been able to successfully get his blood sugar under control before Reinforced diabetic diet Will recheck his labs, FBS and HgbA1c in 4 months for follow up (5) Left renal mass: Code(s): N28.89 - Other specified disorders of kidney and ureter Plan: Repeat abdominal CT done most recently in December 2022 for his left renal mass came out benign - mass is a nonenhancing stable 1.9 cm cystic lesion in the upper pole of the left kidney with thick peripheral calcifications that could po tentially obscure peripheral mural nodules. This is classified as a Bosniak 2F lesion and it was recommended that he get a follow-up CT again in a year's time to ensure stability Will now send him for his 1 year's repeat/follow up abdominal CT Follow up with urology as scheduled (6) Renal calculus, left: Code(s): N20.0 - Calculus of kidney Plan: (+) NON-OBSTRUCTING stones seen in the left kidney incidentally on his previous abdominal CT Patient is currently asymptomatic and does not require any intervention at this time He has been encouraged to increase his oral fluids regularly Follow up with urology as scheduled (7) Varicose veins of lower extremities with other complications: Code(s): I83.893 - Varicose veins of bilateral lower extremities with other complications Plan: S/P right great saphenous vein ablation with venaseal by Dr. Levy early last year (2022) with (+) improvement of his leg symptoms He was advised that he also has venous reflux on his left leg but as he has very little symptoms on the left leg, no intervention is needed at the time Follow up with vascular surgery as scheduled (8) Benign prostatic hyperplasia with urinary frequency: Code(s): N40.1 - Benign prostatic hyperplasia with lower urinary tract symptoms; R35.0 - Frequency of micturition Plan: Continue Tamsulosin 0.4 mg Q HS Prostate Bx done last year reportedly came back negative Follow up with urology as scheduled (9) Overweight (BMI 25.0-29.9): Code(s): E66.3 - Overweight Plan: Reinforced diet/exercise as tolerated/lose weight Plan Follow up in 4 months Orders: Orders Complete Blood Count Auto Diff 4 Months D64.9 - Anemia, unspecified TSH reflex Free T4 4 Months E78.00 - Pure hypercholesterolemia, unspecified Hemoglobin A1c 4 Months E11.9 - Type 2 diabetes mellitus without complications Microalbumin, Random (w Creat) 4 Months E11.9 - Type 2 diabetes mellitus without complications CT abdomen wo/w IV con Today N28.1 - Cyst of kidney, acquired Comprehensive [place]. Panel Fast 4 Months E78.00 - Pure hypercholesterolemia, unspecified Lipid Panel 4 Months E78.00 - Pure hypercholesterolemia, unspecified UA CC w/rflx Micro + Cult 4 Months R30.0 - Dysuria Vitamin D 25-OH Total 4 Months E55.9 - Vitamin D deficiency, unspecified Coding Level of Care Code Est Pt Level 4 (75748) Complex EM visit Add On G2211 Diagnoses Coronary artery disease involving [place] coronary artery of [place] heart without angina pectoris I25.10 Coronary Disease-Associated Artery/Lesion type: [place] artery [place] vs. transplanted heart: [place] heart Associated angina: without angina Pure hypercholesterolemia E78.00 Benign essential hypertension I10 Type 2 diabetes mellitus without complication, without long-term current use of insulin E11.9 Diabetes mellitus type: type 2 Diabetes mellitus custodial insulin use: without custodial use Diabetes mellitus complication status: without complication Left renal mass N28.89 Renal calculus, left N20.0 Varicose veins of lower extremities with other complications I83.893 Benign prostatic hyperplasia with urinary frequency N40.1; R35.0 Overweight (BMI 25.0-29.9) E66.3
== END 2024-01-05 17:02 | disposition home or self-care (01) ==
PROVIDERS: PCP Internal Medicine; Visit Provider Internal Medicine
DX: I25.10 Atherosclerotic heart disease of native coronary artery without angina pectoris (principal); E78.00 Pure hypercholesterolemia, unspecified; I10 Essential (primary) hypertension; E11.9 Type 2 diabetes mellitus without complications; N28.89 Other specified disorders of kidney and ureter; N20.0 Calculus of kidney; I83.893 Varicose veins of bilateral lower extremities with other complications; N40.1 Benign prostatic hyperplasia with lower urinary tract symptoms; R35.0 Frequency of micturition; E66.3 Overweight
CPT/HCPCS: 99214; G2211

== ENCOUNTER 2024-01-26 08:39 | Outpatient (AMB) | payer OTHER, SELFPAY ==
--- NOTE | 2024-01-26 08:35 | MHC.OFFVIS ---
Intake Visit Reasons: 6M PSA/US(psa done no u/s) Intake Note: Patient is present for 6m psa/us Urology Medication:finasteride Antibiotic Allergy:none Blood Thinner:aspirin Novelties Sales Representative Required: No Allergies No Known Allergies [No Known Allergies*] Allergy (Verified 01/26/24 08:36) Medication List - Last Reconciled 01/26/24 by Antoni Karimi MD aspirin 81 mg PO DAILY 90 days atorvastatin 80 mg PO DAILY 90 days clonidine HCl 0.2 mg PO Q12H 90 days finasteride 5 mg PO DAILY 90 days lisinopril 20 mg PO DAILY 90 days metoprolol tartrate 12.5 mg (1/2 x 25 mg) PO BID 90 days HPI Comments Details: Ramses is a very pleasant male. He is a patient Dr. Vo. 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 PSA 07/15 9, 02/14 4.0 F14%, 08/16 5.0, 06/19 2.6 FH - Not aware Comorbids - DM HBA1c% 6.6 Prostate Biopsy 11/15 Neg - chronic inflammation Calcified renal cyst Detected on imaging Lower urinary tract symptoms Initial presentation with hesitancy and nocturia Good response to tamsulosin Current therapy tamsulosin PFSH Medical History Varicose veins of lower extremities with other complications Diabetes mellitus Obesity (BMI 30-39.9) Coronary artery disease Benign prostatic hyperplasia with urinary frequency Pure hypercholesterolemia Left renal mass Overweight (BMI 25.0-29.9) Chronic gastritis H pylori ulcer Hyperlipidemia Elevated PSA Gastritis Benign essential hypertension Surgical History Status post endovenous radiofrequency ablation of saphenous vein (~2022) History of coronary artery stent placement (~10/2020) H/O colonoscopy H/O nasal polypectomy Family History Father No problems noted. Mother No problems noted. 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 Cognitive needs: No Hearing needs: No Vision needs: No Review of Systems Const All systems reviewed & are unremarkable except as noted in HPI and below Reports no additional complaints Resp Reports no additional complaints GI Reports no additional complaints Reports as per HPI Musc Reports no additional complaints Physical Exam Telemedicine evaluation Appropriate responses Regular breathing rate and rhythm HEENT Head: Yes normal to inspection Ears: hearing grossly normal bilaterally Eyes General: appearance normal, both eyes and all related structures Neck Neck: Yes normal visual inspection Chest Chest palpation & inspection: normal inspection of the chest Resp Effort & Inspection: normal respiratory effort and able to speak in complete sentences Telehealth Telehealth Telehealth Platform: [employer] Location of provider rendering services: practice address Location of patient: address on file Patient Identification confirmed using: Name, : Yes Telehealth method: video Patient verbally consented to treatment: Yes Patient verbally consented to billing insurance company: Yes Patient informed of any privacy concerns related to visit: Yes Minutes spent on Phone/Video with Pt.: 15 Assessment & Plan Assessment & Plan (1) BPH w urinary obs/LUTS: Code(s): N40.1 - Benign prostatic hyperplasia with lower urinary tract symptoms; N13.8 - Other obstructive and reflux uropathy Category: Medical (2) Renal cyst, left: Code(s): N28.1 - Cyst of kidney, acquired Category: Medical (3) Elevated PSA: Code(s): R97.20 - Elevated prostate specific antigen [PSA] Category: Medical Plan 12 month follow-up renal ultrasound Orders: Orders Prostate Specific Antigen 364 Days N40.1 - Benign prostatic hyperplasia with lower urinary tract symptoms, R35.0 - Frequency of micturition Patient Instructions: Imaging studies, laboratory and physical exam results were discussed and reviewed in detail. No major barriers to patient understanding were identified. An opportunity to ask questions regarding the treatment plan was provided. All questions were answered. The patient expressed understanding and agreement with the above treatment plan. The patient is aware they should contact our office by phone for worsening of their current condition or the appearance of new urologic symptoms. Compliance is encouraged with any medications and followup testing that is ordered. It is a privilege to participate in the urologic care of your patient. If you have any questions or concerns regarding treatment for the above conditions, or other urologic issues, please do not hesitate to contact me. The office telephone contact is [phone]. This note is constructed using voice recognition software. While every effort has been made to ensure accuracy boat diesel motor mechanic errors may have been included. Yours sincerely, Dr Antoni Karimi MD, [facility] - Urology Providers of Expert, Compassionate Care for the Genitourinary System Coding Level of Care Code Tele Est Pt Level 3 (55191) Diagnoses BPH w urinary obs/LUTS N40.1; N13.8 Renal cyst, left N28.1 Elevated PSA R97.20
== END 2024-01-26 09:28 | disposition home or self-care (01) ==
LOC: HO.HUSH 08:39
PROVIDERS: PCP Internal Medicine; Visit Provider Urology
DX: N40.1 Benign prostatic hyperplasia with lower urinary tract symptoms (principal); N13.8 Other obstructive and reflux uropathy; N28.1 Cyst of kidney, acquired; R97.20 Elevated prostate specific antigen [PSA]
CPT/HCPCS: 99213

== ENCOUNTER → 2024-01-26 08:39 | Outpatient (BNVA) | payer OTHER, SELFPAY | PROVIDERS: PCP Internal Medicine; Visit Provider Urology ==

== ENCOUNTER 2024-11-25 08:24 | Outpatient (REF) | payer OTHER, SELFPAY ==
[2024-11-25 08:59] LABS: MANUAL DIFF FLAG NO
[2024-11-25 09:24] LABS: Hematocrit 44.6 % (42.0-52.0); Hemoglobin 15.2 g/dl (14.0-18.0); Imm Gran Abs Auto 0.01 X10*3/uL (0.00-0.03); Imm Gran Pct Auto 0.2 % (0.0-0.4); Lymphocytes Absolute Auto 1.3 X10*3/uL (1.2-4.9); Mean Corpuscular HGB Conc 34.1 g/dl (31.0-36.0); Mean Corpuscular Hemoglobin 29.6 pg (27.0-33.0); Mean Corpuscular Volume 86.8 fL (80.0-98.0); NRBC Abs Auto 0.000 X10*3/uL (0.0-0.012); NRBC Pct Auto 0.0 /100WBC (0.0-0.2); Platelet Count 177 X10*3/uL (160-400); Red Blood Count 5.14 X10*6/uL (4.60-5.80); White Blood Count 6.0 X10*3/uL (4.8-10.8)
[2024-11-25 10:02] LABS: Appearance Urine Clear; Glucose Urine UA Negative (Negative); Hemoglobin A1C 160.4614 umol/L; PH 8.0 (5.0-9.0); Specific Gravity - Urine 1.010 (1.005-1.025); Total Hemoglobin (HGBA1C) 4011.1486 umol/L; UMIC TRIGGER UACC YES
[2024-11-25 10:27] LABS: Alanine Aminotransferase 38 U/L (0-40); Albumin Level 4.4 g/dL (3.5-5.0); Alkaline Phosphatase 75 U/L (39-117); Anion Gap 10 (12-20); Aspartate Amino Transferase 28 U/L (5-37); Blood Urea Nitrogen 12 mg/dL (9-16); Calcium 8.8 mg/dL (8.4-10.2); Carbon Dioxide 28 mmol/L (22-29); Chloride 107 mmol/L (96-108); Cholesterol 120 mg/dL (<200); Estimated Glomerular Filt Rate > 60; HDL Cholesterol 55 mg/dL (>40); Potassium 4.1 mmol/L (3.3-5.1); Sodium 141 mmol/L (135-145); Total Protein 6.5 g/dL (6.5-8.0); Triglycerides 57 mg/dL (<150)
== END 2024-11-25 08:25 | disposition home or self-care (01) ==
LOC: HO.LAB 08:24
PROVIDERS: PCP Internal Medicine; Visit Provider Internal Medicine
DX: E11.9 Type 2 diabetes mellitus without complications (principal); E78.00 Pure hypercholesterolemia, unspecified; E55.9 Vitamin D deficiency, unspecified; D64.9 Anemia, unspecified
CPT/HCPCS: 36415; 80053; 80061; 81001; 81003; 82043; 82306; 82570; 83036; 84443; 85025

== ENCOUNTER 2024-11-30 12:56 | Outpatient (AMB) | payer OTHER, SELFPAY ==
--- OUTSIDE RECORDS SUMMARY | 2024-11-30 12:59 | XMS_ITS | Encounter Summary ---
Author Organization [facility] Address [address] [facility] [address] [place] [phone] Phone Care Team Providers Care Continuous Mining Operator Name Role Phone León Vo MD Primary Care Provider [phone] Reason for Referral * - Closed Specialty Diagnoses / Procedures Referred By Kervin goel Referred To Contact Radiology Diagnoses Atrial fibrillation Arrhythmia Procedures US Aorta Duplex Complete Shahzad Levy DO Phone: tel: fax: [email or web address] Referral ID Status Reason Start Date Expiration Date Visits Re quested Visits Authorized [id number] Closed 07/14/2023 07/13/2024 1 1 Encounter Details Date Type Department Care Team (Latest Contact Info) Description 07/14/2023 Ancillary Orders [facility] [address] [facility] 3rd Floor, [address] [place] [id number] Shahzad Levy DO [address] [place] [address] [place] [id number] [email or web address] Atrial fibrillation (Primary Dx); Arrhythmia Social History Tobacco Use Types Packs/Day Years Used Date Smoking Tobacco: Never Smokeless Tobacco: Never Education Answer Date Recorded Are you interested in more education? Not on jolanta e 08/21/2022 Are you concerned about learning? Not on file 08/21/2022 No 08/21/2022 No 08/21/2022 Digital Access Answer Date Recorded No 09/19/2022 No 09/19/2022 Reliable internet access at home? Not on file 09/19/2022 Device with a working camera? Not on file Sex and Gender Information Value Date Recorded Sex Assigned at Not on file Legal Sex Male 3:22 PM EST Gender Identity Not on file Sexual Orientation Not on file documented as of this encounter Plan of Treatment Upcoming Encounters Date Type Department Care Team (Late st Contact Info) Description 12/15/2024 10:45 AM EDT Appointment [facility] [address] [place] [address] [address] [place] [address] Shahzad Levy, [address] [place] [address] [place] [phone] 12/21/2024 8:00 AM EDT Office Visit [facility] [address] [place] [address] [address] [facility], [address] [place] [phone] Adrianna Santiago, MAYRA [address] [place] [address], [address] [place] [phone] documented as of this encounter Results * US Aorta Duplex Complete (07/14/2023 9:04 AM EDT) Anatomical Region Laterality Modality Aorta Ultrasound Narrative 07/16/2023 8:34 AM EDT No evidence of AAA. Velocities within normal limits. No evidence of significant obstructive peripheral arterial disease. Abdominal Aorta AORTA Findings: normal; Aorta diameters: Prox: 1.9cm Mid: 1.9x 1.8x 1.8cm Distal: 1.7x 1.7x 1.6cm Right AVA: 1.4cm Left AVA: 1.4cm Velocities: Prox: 89cm/sec Mid: 103 cm/sec Right AVA: 84cm/sec Right EIA:123cm/sec max Left AVA: 107cm/sec Dist AVA: 129 cm/sec Introductory Comments Arterial inflow was assessed. us Shahzad Levy DO IMG US ABDOMEN Final Result documented in this encounter Visit Diagnoses Diagnosis Atrial fibrillation Arrhythmia Unspecified cardiac dysrhythmia Atrial fibrillation- Primary Arrhythmia Unspecified cardiac dysrhythmia documented in this encounter Care Teams Continuous Mining Operator Relationship Specialty Start Date End Date León Vo MD [address] [place] [address] [place] [address] PCP - General Internal Medicine 07/05/20 documented as of this encounter Additional Source Comments The information contained in this document represents components of the legal health record. It is not the complete legal health record.[facility]
--- NOTE | 2024-11-30 13:04 | A.OFFPC_ITS ---
Vital Signs 11/30/24 13:05 Height 5 ft 11 in Weight 203 lb 8 oz BMI 28.4 BP 114/78 Blood Pressure Location Lt brachial Position Sitting Pulse 88 Pulse Source Pulse Oximeter Pulse Oximetry (%) 98 Oxygen Delivery Method Room Air Intake Visit Reasons: 4 month f/u Leather Tanner Required: No Accompanied by: Self / Same As Patient Allergies No Known Allergies (No Known Allergies*) Allergy (Verified 11/30/24 13:25) Medication List - Last Reconciled 11/30/24 by León Vo MD aspirin 81 mg PO DAILY 90 days atorvastatin 80 mg PO DAILY 90 days clonidine HCl 0.2 mg PO Q12H 90 days finasteride 5 mg PO DAILY 90 days lisinopril 20 mg PO DAILY 90 days metoprolol tartrate 12.5 mg (1/2 x 25 mg) PO BID 90 days Tobacco use date assessed: 11/30/24 Dental Screening Dental Screen Date: 11/30/24 Did you have a dental visit in the last 12 months?: No Did you have a dental problem in the last 6 months where you did not have access to dental care?: No Was dental information given to patient?: No HPI 4 month f/u HPI Details Patient comes in today for his follow-up visit States that he feels okay He denies any headaches or dizziness Denies any chest pains, no shortness of breath No nausea/vomiting, no abdominal pain No change in bowel habits noted He had his follow-up labs done a few days ago - to discuss his results Location [facility] Medical History (Updated 12/01/24 @ 05:51 by León Vo MD) Essential hypertension Varicose veins of lower extremities with other complications Diabetes mellitus Obesity (BMI 30-39.9) Coronary artery disease Benign prostatic hyperplasia with urinary frequency Pure hypercholesterolemia Left renal mass Overweight (BMI 25.0-29.9) Chronic gastritis H pylori ulcer Hyperlipidemia Elevated PSA Gastritis Benign essential hypertension Surgical History Status post endovenous radiofrequency ablation of saphenous vein (~2022) History of coronary artery stent placement (~10/2020) H/O colonoscopy H/O nasal polypectomy Family History Father No problems noted. Mother No problems noted. Social History Household Members: Significant Other Housing: House Are you a primary chiropractic care to a significant other at home: No Do you presently have visiting nurse or other home services: No Alcohol intake: current Alcohol intake frequency: holidays/special occasions only Alcohol type: wine and hard liquor Patient Tobacco Use Status: Never used Tobacco e-Cigarette/Vaping Use: Never Used Second Hand Smoke Exposure: No service: No Current occupational status: employed Current occupation: [employer] Cognitive needs: No Hearing needs: No Vision needs: No Questionnaire PHQ-9 Over the last 2 weeks, how often have you been bothered by any of the following problems? 1. Little interest or pleasure in doing things: not at all 2. Feeling down, depressed, or hopeless: not at all 3. Trouble falling or staying asleep, or sleeping too much: not at all 4. Feeling tired or having little energy: not at all 5. Poor appetite or overeating: not at all 6. Feeling bad about yourself - or that you are a failure or have let yourself or your family down: not at all 7. Trouble concentrating on things, such as reading the newspaper or watching television: not at all 8. Moving or speaking so slowly that other people could have noticed. Or the opposite - being so fidgety or restless that you have been moving around a lot more than usual: not at all 9. Thoughts that you would be better off or of hurting yourself in some way: not at all Total score: 0 Depression Screening Interpretation: Negative Depression Screening Done: Yes 37139 - PHQ-9 Billing: Yes Source: Developed by Drs. Raul Brown, Riana Kincaid, Rocky Ricci and colleagues, with an educational andrés from [employer]. Thrive Questionnaire Date Thrive assessed: 11/30/24 I am a: Patient What is your living situation today?: I choose not to answer this question Within the past 12 months, did the food you bought not last and you didn't have the money to get more?: I choose not to answer this question Within the past 12 months, did you worry whether your food would run out before you got money to buy more?: I choose not to answer this question Do you have trouble paying for medicines?: I choose not to answer this question Do you have trouble getting transportation to medical appointments?: I choose not to answer this question Do you have trouble paying your heating and electricity bill?: I choose not to answer this question Do you have trouble taking care of your child, family member or friend?: I choose not to answer this question Do you have trouble with day-to-day activities such as bathing, preparing meals, shopping, managing finances, etc.?: I choose not to answer this question Are you currently unemployed and looking for a job?: I choose not to answer this question Are you interested in more education?: I choose not to answer this question Please select the resources that you would like help with: None Currently or been in a relationship where the following occur: I choose not to answer THRIVE Score: 0 AUDIT C Alcohol Use Questionnaire (AUDIT-C) 1. How often do you have a drink containing alcohol?: Monthly or less 2. How many drinks containing alcohol do you have on a typical day when you are drinking?: 1 or 2 3. How often do you have six or more drinks on one occasion?: Never Total Score: 1 Score Reviewed/Action Taken: Yes ELROY-7 AMB Questionnaire ELROY-7 Date ELROY - 7 assessed: 11/30/24 Feeling nervous, anxious, or on edge: 0 = Not at all Not being able to stop or control worryin = Not at all Worrying too much about different things: 0 = Not at all Trouble relaxin = Not at all Being so restless that it is hard to sit still: 0 = Not at all Becoming easily annoyed or irritable: 0 = Not at all Feeling afraid as if something awful might happen: 0 = Not at all Total ELROY-7 score (0-4 normal; 5-9 mild; 10-14 moderate; 15-21 severe): 0 Source: Developed by Drs. Raul Brown, Riana Kincaid, Rocky Ricci and colleagues, with an educational andrés from [employer]. Review of Systems Const Denies chills, Denies fatigue, Denies fever(s) and Denies headache(s) ENT Denies dysphagia, Denies dizziness, Denies otalgia, Denies headache(s), Denies neck pain, Denies odynophagia and Denies sore throat Card Denies chest pain, Denies palpitations and Denies dyspnea Resp Denies chest congestion, Denies cough and Denies dyspnea GI Denies abdominal pain, Denies constipation, Denies dysphagia, Denies heartburn, Denies diarrhea, Denies nausea, Denies odynophagia and Denies vomiting Denies dysuria, Denies nocturia and Denies urinary frequency Musc Denies back pain and Denies neck pain Skin/Breast Denies rash Neuro Denies dizziness and Denies headache(s) Endo Denies fatigue and Denies palpitations Physical exam (Primary Care) Vital Signs: Last Vital Signs Pulse 88 11/30/24 13:05 BP 114/78 11/30/24 13:05 Pulse Ox 98 11/30/24 13:05 Oxygen Delivery Method Room Air 11/30/24 13:05 BMI result Body Mass Index 28.4 Tobacco/Smoking Status: Tobacco use Status Tobacco use date assessed 11/30/24 11/30/24 13:10 Patient Tobacco Use Status Never used Tobacco 11/30/24 13:10 e-Cigarette/Vaping Use Never Used 11/30/24 13:10 PHQ-9: PHQ-9 Score PHQ-9: Total score 0 11/30/24 13:27 Depression Screening Interpretation: Negative Thrive Assessment: Date of Thrive Assessment Date Thrive assessed 11/30/24 11/30/24 13:10 Currently or been in a relationship where the following occur: I choose not to answer Const General: no acute distress and alert HENMT Ears: TM's normal bilaterally and EAC's normal Throat: Yes posterior oropharynx normal and Yes tonsils normal (no TP congestion) Neck Neck: Yes supple and No lymphadenopathy Thyroid: Thyroid normal Resp Auscultation: clear to auscultation bilaterally, no rales and no wheezes Cardio Rate: regular rate Rhythm: regular rhythm Heart sounds: no murmurs GI Palpation (GI): Soft to palpation and nontender Auscultation: normal bowel sounds General: Yes no CVA tenderness Back/Spine/Pelvis Back: no CVA tenderness Thoracic/Lumbar Spine: No lumbar spinal tenderness Skin Rashes: no rashes Extrem General: No clubbing, No cyanosis and Yes pedal edema ((+) trace, bilaterally) Results Reviewed Results Reviewed: Laboratory Tests 11/25/24 08:55 WBC 6.0 Hgb 15.2 Hct 44.6 Plt Count 177 D Sodium 141 Potassium 4.1 Creatinine 0.99 Estimated GFR > 60 Fasting Glucose 100 H Hemoglobin A1c % 5.8 Calcium 8.8 AST 28 ALT 38 Triglycerides 57 Cholesterol 120 LDL Cholesterol, Calc 54 HDL Cholesterol 55 25-OH Vitamin D Total 51.1 TSH 0.83 Ur Specific [place] 1.010 Urine Protein Negative Urine Glucose (UA) Negative Urine Blood Negative Urine Nitrite Negative Ur Leukocyte Esterase Trace H Coding Level of Care Code Est Pt Level 4 (45980) Complex EM visit Add On G2211 Diagnoses Coronary artery disease involving [place] coronary artery of [place] heart without angina pectoris I25.10 Coronary Disease-Associated Artery/Lesion type: [place] artery [place] vs. transplanted heart: [place] heart Associated angina: without angina Pure hypercholesterolemia E78.00 Essential hypertension I10 Type 2 diabetes mellitus without complication, without long-term current use of insulin E11.9 Diabetes mellitus type: type 2 Diabetes mellitus [facility] insulin use: without [facility] use Diabetes mellitus complication status: without complication Left renal mass N28.89 Renal calculus, left N20.0 Varicose veins of lower extremities with other complications I83.893 Benign prostatic hyperplasia with urinary frequency N40.1; R35.0 Overweight (BMI 25.0-29.9) E66.3 Additional Codes PHQ-9 - 90642 - PHQ-9 Billing: Yes ([id number]) Assessment & Plan Assessment & Plan (1) Coronary artery disease: Comment: S/P NSTEMI in 10/2020; (+) ROSALIO to OM-1 / circumflex artery Code(s): I25.10 - Atherosclerotic heart disease of [place] coronary artery without angina pectoris Category: Medical Qualifiers: Coronary Disease-Associated Artery/Lesion type: [place] artery [place] vs. transplanted heart: [place] heart Associated angina: without angina Qualified Code(s): I25.10 - Atherosclerotic heart disease of [place] coronary artery without angina pectoris Plan: S/P NSTEMI in 10/2020 requiring ROSALIO to circumflex artery S/P Ticagrelor 90 mg BID x 1 year Patient is currently asymptomatic from cardiac standpoint Continue lifelong low dose Aspirin therapy at 81 mg QD and Metoprolol 12.5 mg BID Follow up with cardiology as scheduled (2) Pure hypercholesterolemia: Code(s): E78.00 - Pure hypercholesterolemia, unspecified Category: Medical Plan: Results of his labs done a few days ago reviewed and discussed with patient Reinforced low cholesterol diet Continue Atorvastatin 80 mg QD Will recheck his labs and fasting lipids in 4 months for follow up (3) Essential hypertension: Code(s): I10 - Essential (primary) hypertension Category: Medical Plan: Reinforced low sodium diet - goal is systolic BP of 120 mm or less Continue Lisinopril 20 mg QD, Metoprolol 12.5 mg BID and Clonidine 0.2 mg BID (4) Diabetes mellitus: Code(s): E11.9 - Type 2 diabetes mellitus without complications Category: Medical Qualifiers: Diabetes mellitus type: type 2 Diabetes mellitus 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 use: without [facility] use Diabetes mellitus complication status: without complication Qualified Code(s): E11.9 - Type 2 diabetes mellitus without complications Plan: His HgbA1c is at 5.8% onhis recent labs (was previously at 6.2% a few months ago) - goal is at least <6.5% but should be lower if he does not wish to take any Rx for his condition Reinforced diabetic diet; patient has declined offer again to start him on Rx and wants to continue with diet modification, exercise and weight loss for now as he has been able to successfully get his blood sugar back under control Reinforced diabetic diet Will recheck his labs, FBS and HgbA1c in 4 months for follow up (5) Left renal mass: Code(s): N28.89 - Other specified disorders of kidney and ureter Category: Medical Plan: Repeat abdominal CT done most recently in December 2022 for his left renal mass came out benign - mass is a nonenhancing stable 1.9 cm cystic lesion in the upper pole of the left kidney with thick peripheral calcifications that could potentially obscure peripheral mural nodules. This is classified as a Bosniak 2F lesion and it was recommended that he get a follow-up CT again in a year's time to ensure stability He was sent for his repeat CT last year but this was never scheduled nor done - will now send him again for his 1 year's repeat/follow up abdominal CT Follow up with urology as scheduled (6) Renal calculus, left: Code(s): N20.0 - Calculus of kidney Category: Medical Plan: (+) NON-OBSTRUCTING stones seen in the left kidney incidentally on his previous abdominal CT Patient is currently asymptomatic and does not require any intervention at this time He has been encouraged to increase his oral fluids regularly Follow up with urology as scheduled (7) Varicose veins of lower extremities with other complications: Code(s): I83.893 - Varicose veins of bilateral lower extremities with other complications Category: Medical Plan: S/P right great saphenous vein ablation with venaseal by Dr. Levy a couple of years ago (2022) with (+) improvement of his leg symptoms He was advised that he also has venous reflux on his left leg but as he has very little symptoms on the left leg, no intervention is needed at the time Follow up with vascular surgery as scheduled (8) Benign prostatic hyperplasia with urinary frequency: Code(s): N40.1 - Benign prostatic hyperplasia with lower urinary tract symptoms; R35.0 - Frequency of micturition Category: Medical Plan: Continue Tamsulosin 0.4 mg Q HS Prostate Bx done last year reportedly came back negative Follow up with urology as scheduled (9) Overweight (BMI 25.0-29.9): Code(s): E66.3 - Overweight Category: Medical Plan: Reinforced diet/exercise as tolerated/lose weight Plan Follow up in 4 months Orders: Orders Hemoglobin A1c 4 Months E11.9 - Type 2 diabetes mellitus without complications Microalbumin, Random (w Creat) 4 Months E11.9 - Type 2 diabetes mellitus without complications UA CC w/rflx Micro + Cult 4 Months R30.0 - Dysuria CT abdomen wo/w IV con 11/30/24 N28.1 - Cyst of kidney, acquired Complete Blood Count Auto Diff 4 Months D64.9 - Anemia, unspecified Comprehensive [place]. Panel Fast 4 Months E78.00 - Pure hypercholesterolemia, unspecified Lipid Panel 4 Months E78.00 - Pure hypercholesterolemia, unspecified TSH reflex Free T4 4 Months E78.00 - Pure hypercholesterolemia, unspecified
[2024-11-30 13:05] VITALS: BP 114/78; PULSE 88; O2SAT 98; BMI 28.4
== END 2024-11-30 13:34 | disposition home or self-care (01) ==
LOC: HO.HMCH 12:57
PROVIDERS: PCP Internal Medicine; Visit Provider Internal Medicine
DX: I25.10 Atherosclerotic heart disease of native coronary artery without angina pectoris (principal); E78.00 Pure hypercholesterolemia, unspecified; I10 Essential (primary) hypertension; E11.9 Type 2 diabetes mellitus without complications; N28.89 Other specified disorders of kidney and ureter; N20.0 Calculus of kidney; I83.893 Varicose veins of bilateral lower extremities with other complications; N40.1 Benign prostatic hyperplasia with lower urinary tract symptoms; R35.0 Frequency of micturition; E66.3 Overweight

== ENCOUNTER → 2024-11-30 12:56 | Outpatient (BNVA) | payer OTHER, SELFPAY | PROVIDERS: PCP Internal Medicine; Visit Provider Internal Medicine | DX: I25.10 Atherosclerotic heart disease of native coronary artery without angina pectoris (principal); E78.00 Pure hypercholesterolemia, unspecified; I10 Essential (primary) hypertension; E11.9 Type 2 diabetes mellitus without complications; N28.89 Other specified disorders of kidney and ureter; N20.0 Calculus of kidney; I83.893 Varicose veins of bilateral lower extremities with other complications; N40.1 Benign prostatic hyperplasia with lower urinary tract symptoms; R35.0 Frequency of micturition; E66.3 Overweight; R30.0 Dysuria; N28.1 Cyst of kidney, acquired; D64.9 Anemia, unspecified; Z68.28 Body mass index [BMI] 28.0-28.9, adult | CPT/HCPCS: 96127 ==

== ENCOUNTER 2025-03-17 08:53 | Outpatient (REF) | payer OTHER, SELFPAY ==
--- OUTSIDE RECORDS SUMMARY | 2025-03-17 08:57 | XMS_ITS | Encounter Summary ---
Author Organization [facility] Address [address] [place] [address] Phone Care Team Providers Care Stave Bolt Equalizer Name Role Phone León Vo MD Primary Care Provider [phone] Reason for Referral * - Closed Specialty Diagnoses / Procedures Referred By Kervin goel Referred To Contact Radiology Diagnoses Atrial fibrillation Arrhythmia Procedures US Lower Extremity Arteries (LETICIA) Physio Complete Bilat Shahzad Levy DO Phone: tel: fax: mailto: Referral ID Status Reason Start Date Expiration Date Visits Re quested Visits Authorized [id number] Closed 07/14/2023 07/13/2024 1 1 Encounter Details Date Type Department Care Team (Latest Contact Info) Description 07/14/2023 Ancillary Orders [facility] [address]rd Floor, [address] [place] [address] Shahzad Levy DO [address] [place] [address] [email or web address] Atrial fibrillation (Primary Dx); Arrhythmia Social [...] Care Team (Late st Contact Info) Description 06/26/2025 7:30 AM EST Office Visit [facility] [address] Floor, [address] [place] [address] Shahzad Levy DO [address] [place] [address] [email or web address] documented as of this encounter Results * US Lower Extremity Arteries (LETICIA) Physio Complete Bilat (07/14/2023 9:04 AM EDT) Arm 118 mmHg Posterior Tibial 150 mmHg Posterior Tibial Index 1.27 Dorsalis Pedis 160 mmHg Dorsalis Pedis Index 1.36 Arm 118 mmHg Posterior Tibial 180 mmHg Posterior Tibial Index 1.53 Dorsalis Pedis 160 mmHg Dorsalis Pedis Index 1.36 Anatomical Region Laterality Modality Ultrasound Narrative 07/16/2023 8:33 AM EDT Triphasic waveforms. Ankle/Brachial index on the right side is 1.3. This finding is normal. Ankle/Brachial index on the left side is 1.5 This finding is normal, but could indicate fibrotic or calcific change in the vessels. No evidence of significant obstructive peripheral arterial disease. us Shahzad Levy DO CV US VASCULAR Final Result documented in this encounter Visit Diagnoses Diagnosis Atrial fibrillation Arrhythmia Unspecified cardiac dysrhythmia Atrial fibrillation- Primary Arrhythmia Unspecified cardiac dysrhythmia documented in this encounter Care Teams Stave Bolt Equalizer Relationship Specialty Start Date End Date León Vo MD [address] [place] [address] [address] [place] [address] PCP - General Internal Medicine 07/05/20 documented as of this encounter Additional Source Comments The information contained in this document represents components of the legal health record. It is not the complete legal health record.[facility]
--- OUTSIDE RECORDS SUMMARY | 2025-03-17 08:57 | XMS_ITS | Encounter Summary ---
Author Organization [facility] Address [address] [place] [address] Phone Care Team Providers Care Asset Card Clerk Name Role Phone León Vo MD Primary Care Provider [phone] Reason for Referral * - New Request Specialty Diagnoses / Procedures Referred By Kervin goel Referred To Contact Radiology Diagnoses PVD (peripheral vascular disease) Procedures US Lower Extremity Arteries (LETICIA) Physio Limited [facility] Shahzad Levy DO [address] [address] Phone: tel: fax: mailto:[email or web address] Referral ID Status Reason Start Date Expiration Date V isits Requested Visits Authorized [id number] New Request 12/15/2024 1 1 Encounter Details Date Type Department Care Team (Late st Contact Info) Description 12/15/2024 Ancillary Orders [facility] [address] [place] [address] Shahzad Levy DO [address] [address] PVD (peripheral vascular disease) (Primary Dx) Social History Tobacco Use Types Packs/Day Years [...] Description 06/26/2025 7:30 AM EST Office Visit [facility] [address] [place] [address] [address]rd Floor, [address] [place] [address] Shahzad Levy DO [address] [place] [address] [address] [place], [place] [id number] [email or web address] documented as of this encounter Results * US Lower Extremity Arteries (LETICIA) Physio Limited Unilat (12/15/2024 11:08 AM EDT) Arm 108 mmHg Posterior Tibial 136 mmHg Posterior Tibial Index 1.26 Dorsalis Pedis 132 mmHg Dorsalis Pedis Index 1.22 Posterior Tibial 140 mmHg Posterior Tibial Index 1.30 Dorsalis Pedis 136 mmHg Dorsalis Pedis Index 1.26 Anatomical Region Laterality Modality Ultrasound Narrative 12/20/2024 9:23 AM EDT Findings: Right LETICIA 1.25 normal indice with a triphasic Doppler waveform. 2. Left LETICIA 1.29 normal indice with a triphasic Doppler waveform. Compared to previous exam dated 06/2023, no significant change. Conclusion: Normal ABIs bilaterally No evidence of significant arterial disease Normal blood flow down the right leg by duplex. Introductory Comments Techniques used for this study included: spectral waveform Doppler. us Shahzad Levy DO CV US VASCULAR Final Result documented in this encounter Visit Diagnoses Diagnosis PVD (peripheral vascular disease) Unspecified peripheral vascular disease PVD (peripheral vascular disease)- Primary Unspecified peripheral vascular disease documented in this encounter Care Teams Asset Card Clerk Relationship Specialty Start Date End Date León Vo MD [address] [place] [address] [place] [address] PCP - General Internal Medicine 07/05/20 documented as of this encounter Additional Source Comments The information contained in this document represents components of the legal health record. It is not the complete legal health record.[facility]
--- OUTSIDE RECORDS SUMMARY | 2025-03-17 08:57 | XMS_ITS | Clinical Summary ---
Author Organization [facility] Address [address] [address] Phone Care Team Providers Care Projection Technician Name Role Phone León Vo MD Primary Care Provider +1 -[phone] Allergies No known active allergies Medications lisinopril (PRINIVIL,ZESTRI L) 20 MG tablet Take by mouth daily. Active aspirin 81 MG EC tablet Take 81 mg by mouth daily. Active atorvastatin (LIPITOR) 80 MG tablet Take 80 mg by mouth daily. Active cloNIDine HCL (CATAPRES) 0.2 MG tablet TAKE 1 TABLET BY MOUTH EVERY 12 HOURS FOR 90 DAYS 03/15/2023 Active finasteride (PROSCAR) 5 mg tablet Take 5 mg by mouth. Every other day Active metoprolol tartrate (LOPRESSOR) 25 MG tablet Take 12.5 mg by mouth 2 (two) times a day. 02/17/2023 Active pyridoxine, vitamin B6, (B-6) 100 MG tablet Take 100 mg by mouth daily. Active Active Problems Problem Noted Date Diagnosed Date Atrial fibrillation 04/09/2023 Assessment & Plan (12/21/2024 8:26 AM EDT): EKG today shows normal sinus rhythm. Unclear where the diagnosis of atrial fibrillation came from. He states he has never had any symptoms of this. Assessment & Plan (02/21/2024 11:58 AM EDT): No further evidence of atrial fibrillation Assessment & Plan (04/09/2023 7:35 AM EST): This patient had an ECG done today showing sinus rhythm with no acute changes Arrhythmia 04/09/2023 Peripheral vascular disease of extremity with cl audication 04/09/2023 Assessment & Plan (12/21/2024 8:26 AM EDT): Recent arterial duplex study and ABIs are normal without any occlusion. He denies any symptoms. Continue aspirin 80 mg daily and atorvastatin 80 mg daily. He will follow-up with Dr. Levy in 6 months. Assessment & Plan (02/21/2024 11:57 AM EDT): Asymptomatic with his recent ultrasound showing excellent results which we will repeat in 6 months Assessment & Plan (04/09/2023 7:35 AM EST): He is overdue for an ultrasound of the right lower extremity I have ordered him a lower extremity arterial duplex with iliac imaging Pure hypercholesterolemia 04/09/2023 Assessment & Plan (12/21/2024 8:26 AM EDT): Cholesterol well-controlled on atorvastatin 80 mg daily which she will continue without change. Assessment & Plan (02/21/2024 11:58 AM EDT): LDL is less than 70 mg/dL by the guidelines Assessment & Plan (04/09/2023 7:35 AM EST): LDL should be less than 70 I ordered him an updated lipid panel Encounters Date Type Department Care Team Description 12/21/2024 8:00 AM EDT Office Visit [facility] [address] Floor, [address] [place] [address] Adrianna Santiago DNP Peripheral vascular disease of extremity with claudication (Primary Dx); Pure hypercholesterolemia 12/15/2024 10:19 AM EDT - 12/15/2024 11:59 PM EDT Hospital Encounter [facility] [address] [place] [address] Shahzad Levy, Discharge Disposition: Home or Self Care 12/15/2024 Ancillary Orders [facility] [address] [place] [address] Shahzad Levy DO PVD (peripheral vascular disease) (Primary Dx) from Last 3 Months Immunizations Immunization Administration Dates Next Due COVID-19 (Pre-02/15) Larry Vaccine, [id number], P F 10/02/2021,03/27/2021 Influenza Quadrivalent Preservative Free IM 01/25 Influenza, Unspecified Formulation 03/05/2023, Tdap 03/28/2019 Social History Tobacco Use Types Packs/Day Years Used Date Smoking Tobacco: Never Smokeless Tobacco: Never Tobacco Cessation:Counseling Given: Not Answered Education Answer Date Recorded Are you interested [...] on file Sexual Orientation Not on file Last Filed Vital Signs Vital Sign Reading Time Taken Comments Blood Pressure 138/88 12/21/2024 7:59 AM EDT Pulse 72 12/21/2024 7:59 AM EDT Temperature - - Respiratory Rate - - Oxygen Saturation 99% 12/21/2024 7:59 AM EDT Inhaled Oxygen Concentration - - Weight 92.5 kg (204 lb) 12/21/2024 7:59 AM EDT Height 180.3 cm (5' 10.98 ) 12/21/2024 7:59 AM E DT Body Mass Index 28.47 12/21/2024 7:59 AM EDT Plan of Treatment Upcoming Encounters Date Type Department Care Team (Late st Contact Info) Description 06/26/2025 7:30 AM EST Office Visit [facility] [address] [place] [address] 3rd Floor, [address] [place] [address] Shahzad Levy DO 22 [facility] [address] [place] [address] Health Maintenance Due Date Last Done Comments CREATININE LEVEL 1962 LIPID PANEL 1962 POTASSIUM LEVEL 1962 DEPRESSION SCREENING 1974 HEPATITIS C SCREENING 1980 HIV ONE-TIME SCREENING (18-6 5 YEARS) 1980 SCREENING FOR DIABETES 1997 COLOGUARD 11/17/2007 COLONOSCOPY 11/17/2007 COLORECTAL CANCER SCREENING 11/17/2007 FIT TEST 11/17/2007 FOBT 11/17/2007 SIGMOIDOSCOPY 11/17/2007 VIRTUAL COLONOSCOPY 11/17/2007 PNEUMOCOCCAL VACCINES (50+ years) (1 of 1 - PCV) 2012 ZOSTER VACCINES (1 of 2) 2012 INFLUENZA VACCINE (#1) 2024 , 02/19/2022, 03/27/2021 COVID-19 VACCINE (3 - 2024-2 6 season) 2024 10/02/2021, 03/27/2021 Adult Td,Tdap Booster 03/28/2029 03/28/2019 RSV VACCINE (1 - 1-dose 75+ series) 2037 SMOKING STATUS SCREENING (On ce After 26 Yrs) Completed 12/21/2024 HEPATITIS A VACCINES Aged Out No long er eligible based on patient's age to complete this topic HIB VACCINES Aged Out No longer eligi ble based on patient's age to complete this topic MENINGOCOCCAL VACCINES (ACWY) Aged Out No longer eligible based on patient's age to complete this topic MENINGOCOCCAL VACCINES (B) Aged Out N o longer eligible based on patient's age to complete this topic Medical Devices Not on file Procedures Procedure Name Priority Date/Time Associated Diagnosis Comments US LOWER EXTREMITY ARTERIES (LETICIA) PHYSIO LIMITED UNILAT Routine 12/15/2024 11:08 AM EDT PVD (peripheral vascular disease) US LOWER EXTREMITY ARTERIES DUPLEX COMPLETE (BILATERAL) Routine 12/15/2024 11:08 AM EDT PVD (peripheral vascular disease) from Last 3 Months Results * US Lower Extremity Arteries (LETICIA) [...] Levy DO CV US VASCULAR Final Result * US Lower Extremity Arteries Duplex Complete (Bilateral) (12/15/2024 11:08 AM EDT) Height 180 cm Weight 95 kg Prox FABRIC DESIGNER PSV 75 cm/sec Dist FABRIC DESIGNER PSV 85 cm/sec Prox SFA PSV 76 cm/sec Mid SFA PSV 68 cm/sec Dist SFA PSV 49 cm/sec Prox Popliteal PSV 55 cm/sec Mid Popliteal PSV 45 cm/sec Dist Popliteal PSV 35 cm/sec Dist Anterior Tibial PSV 51 cm/sec Dist Posterior Tibial PSV 55 cm/sec Anatomical Region Laterality Modality Ultrasound Narrative 12/20/2024 9:23 AM EDT Findings: Right lower arterial: There is no evidence of significant arterial occlusive disease in the right lower extremity. Doppler waveforms appear triphasic with minimal plaque visualized. No stent is identified throughout the right lower arterial system. Conclusion: Normal ABIs bilaterally No evidence of significant arterial disease Normal blood flow down the right leg by duplex. Lower Arterial Duplex Right COMMON FEMORAL Proximal: normal Proximal Doppler waveform: triphasic Distal: normal Distal Doppler waveform: biphasic SUPERFICIAL FEMORAL ; Right SFA velocities: proximal 76, 74, 74, 67, mid 68, 65, 72, distal 49, 54, 64cm/s. Proximal Doppler waveform: triphasic Mid Doppler waveform: triphasic Distal Doppler waveform: triphasic POPLITEAL ARTERY Proximal Doppler waveform: triphasic Mid Doppler waveform: triphasic Distal Doppler waveform: triphasic ANTERIOR TIBIAL Distal Doppler waveform: triphasic POSTERIOR TIBIAL Distal Doppler waveform: triphasic Introductory Comments Techniques used for this study included: color flow Doppler and spectral waveform Doppler. us Shahzad Levy DO US VASCULAR Final Result from Last [address] [place], [place] [address]O POS EPO [address] [place], [place] [address]O POS EPO [facility] POS EPO [facility] POS EPO [facility] POS EPO [facility] POS EPO Care Teams Projection Technician Relationship Specialty Start Date End Date León Vo MD [address] [place] [address] [place] [address] PCP - General Internal Medicine 07/05/20 Additional Source Comments The information contained in this document represents components of the legal health record. It is not the complete legal health record.[facility]
--- OUTSIDE RECORDS SUMMARY | 2025-03-17 08:57 | XMS_ITS | Encounter Summary ---
Author Organization [facility] Address [address] [facility] [address] [place] [address] Phone Care Team Providers Care Unbundler Name Role Phone León Vo MD Primary Care Provider +1 -[phone] Reason for Referral * - Closed Specialty Diagnoses / Procedures Referred By Kervin goel Referred To Contact Radiology Diagnoses Atrial fibrillation Arrhythmia Procedures US Aorta Duplex Complete Shahzad Levy DO Phone: tel: fax: mailto: Referral ID Status Reason Start Date Expiration Date Visits Re quested Visits Authorized [id number] Closed 07/14/2023 07/13/2024 1 1 Encounter Details Date Type Department Care Team (Latest Contact Info) Description 07/14/2023 Ancillary Orders [facility] [address] [facility] 3rd Floor, [address] [place] [address] Shahzad Levy DO 22 [facility] [address] [place] [address] [email or web address] Atrial fibrillation (Primary Dx); Arrhythmia Social [...] Description 06/26/2025 7:30 AM EST Office Visit [facility] [address] [place] [address] 3rd Floor, [address] [place] [address] Shahzad Levy DO [address] [facility] [address] [place] [address] [email or web address] documented as of this encounter Results * [...] Right AVA: 84cm/sec Right EIA:123cm/sec max Left VAA: 107cm/sec Dist AVA: 129 cm/sec Introductory Comments Arterial inflow was assessed. us Shahzad Levy DO IMG US ABDOMEN Final Result documented in this encounter Visit Diagnoses Diagnosis Atrial fibrillation Arrhythmia Unspecified cardiac dysrhythmia Atrial fibrillation- Primary Arrhythmia Unspecified cardiac dysrhythmia documented in this encounter Care Teams Unbundler Relationship Specialty Start Date End Date León Vo MD [address] [place] [address] [place] [address] PCP - General Internal Medicine 07/05/20 documented as of this encounter Additional Source Comments The information contained in this document represents components of the legal health record. It is not the complete legal health record.[facility]
--- OUTSIDE RECORDS SUMMARY | 2025-03-17 08:57 | XMS_ITS | Clinical Summary ---
Author Organization [facility] Address [address] [address] Care Team Providers Care Child Development Instructor Name Role Phone León Vo MD Primary Care Provider +1- [phone] Allergies No known active allergies Medications Aspirin Low Dose 81 MG EC tablet 02/18/2021 Act elida atorvastatin (LIPITOR) 80 MG tablet 02/18/2021 Active cloNIDine (CATAPRES) 0.2 MG tablet 02/10/2021 Active Lantus 100 UNIT/ML injection 02/10/2021 Active lisinopril 20 MG tablet 02/10/2021 Active metoprolol tartrate 25 MG tablet 02/18/2021 Active Brilinta 90 MG tablet 02/18/2021 Active thiamine (VITAMIN B-1) 100 MG tablet Take 100 mg by mouth 1 (one) time each day Active tamsulosin (FLOMAX) 0.4 MG 24 hr capsule Take 0.4 mg by mouth at bed time 01/27/2022 Active Active Problems Problem Noted Date Diagnosed Date Acute nontraumatic kidney injury 02/24/2021 Immunizations Immunization Administration Dates Next Due Influenza, Quadrivalent, Preservative Free 02/19 Influenza, Unspecified 03/27/2021 Larry SARS-COV-2 10/02/2021,03/27/2021 Tdap 03/28/2019 Family History Medical History Relation Comments Heart disease Father Heart disease Mother Relation Status Comments Father Mother Social History Tobacco Use Types Packs/Day Years Used Date Smoking Tobacco: Never Smokeless Tobacco: Never Tobacco Cessation:Counseling Given: No Alcohol Use Standard Drinks/Week Comments Yes 0 (1 standard drink = 0.6 oz pur e alcohol) 1-2 drinks a month Sex and Gender Information Value Date Recorded Sex Assigned at Not on file Legal Sex Male 2:57 PM EDT Gender Identity Not on file Sexual Orientation Not on file Last Filed Vital Signs Vital Sign Reading Time Taken Comments Blood Pressure 130/79 03/04/2022 3:57 PM EST Pulse 70 03/04/2022 3:57 PM EST Temperature - - Respiratory Rate - - Oxygen Saturation 97% 02/24/2021 1:54 PM EDT Inhaled Oxygen Concentration - - Weight 99.8 kg (220 lb) 03/04/2022 3:57 PM EST Height - - Body Mass Index - - Plan of Treatment Health Maintenance Due Date Last Done Comments Colorectal Cancer Screening: Annual FOBT 11/17/2011 Colorectal Cancer Screening: Colonoscopy 11/17/2011 Colorectal Cancer Screening: Sigmoidoscopy 11/17/2011 Pneumococcal Vaccine: 50+ Years (1 of 1 - PCV) 2012 Influenza Vaccine (#1) 2024 2, 03/27/2021 Hepatitis B Vaccine Aged Out No longe r eligible based on patient's age to complete this topic Insurance Care Teams Child Development Instructor Relationship Specialty Start Date End Date León Vo MD [address] [place] [address] [place] [address] PCP - General Internal Medicine 02/24/21
[2025-03-17 09:23] LABS: MANUAL DIFF FLAG NO
[2025-03-17 10:12] LABS: Hematocrit 46.7 % (42.0-52.0); Hemoglobin 15.8 g/dl (14.0-18.0); Imm Gran Abs Auto 0.02 X10*3/uL (0.00-0.03); Imm Gran Pct Auto 0.3 % (0.0-0.4); Lymphocytes Absolute Auto 1.5 X10*3/uL (1.2-4.9); Mean Corpuscular HGB Conc 33.8 g/dl (31.0-36.0); Mean Corpuscular Hemoglobin 29.4 pg (27.0-33.0); Mean Corpuscular Volume 87.0 fL (80.0-98.0); NRBC Abs Auto 0.000 X10*3/uL (0.0-0.012); NRBC Pct Auto 0.0 /100WBC (0.0-0.2); Platelet Count 208 X10*3/uL (160-400); Red Blood Count 5.37 X10*6/uL (4.60-5.80); White Blood Count 6.2 X10*3/uL (4.8-10.8)
[2025-03-17 10:34] LABS: Appearance Urine Clear; Glucose Urine UA Negative (Negative); PH 8.0 (5.0-9.0); Specific Gravity - Urine 1.020 (1.005-1.025)
[2025-03-17 10:51] LABS: Alanine Aminotransferase 34 U/L (0-40); Albumin Level 4.4 g/dL (3.5-5.0); Alkaline Phosphatase 82 U/L (39-117); Anion Gap 12 (12-20); Aspartate Amino Transferase 25 U/L (5-37); Blood Urea Nitrogen 12 mg/dL (9-16); Calcium 9.1 mg/dL (8.4-10.2); Carbon Dioxide 28 mmol/L (22-29); Chloride 107 mmol/L (96-108); Cholesterol 127 mg/dL (<200); Estimated Glomerular Filt Rate > 60; HDL Cholesterol 41 mg/dL (>40); Potassium 4.3 mmol/L (3.3-5.1); Sodium 143 mmol/L (135-145); Total Protein 6.8 g/dL (6.5-8.0); Triglycerides 82 mg/dL (<150)
[2025-03-17 11:06] LABS: Prostate Specific Antigen 2.78 ng/mL (<0.05-4.0)
== END 2025-03-17 08:54 | disposition home or self-care (01) ==
LOC: HO.LAB 08:53
PROVIDERS: Absent Provider Urology; PCP Internal Medicine; Visit Provider Internal Medicine
DX: N40.1 Benign prostatic hyperplasia with lower urinary tract symptoms (principal); R35.0 Frequency of micturition; E11.9 Type 2 diabetes mellitus without complications; R30.0 Dysuria; D64.9 Anemia, unspecified; E78.00 Pure hypercholesterolemia, unspecified; Z12.5 Encounter for screening for malignant neoplasm of prostate
CPT/HCPCS: 36415; 80053; 80061; 81003; 82043; 82570; 83036; 84153; 84443; 85025

== ENCOUNTER 2025-03-19 15:24 | Outpatient (REF) | payer OTHER, SELFPAY ==
--- NOTE | ~2025-03-19 | CT_ITS ---
EXAMINATION: CT ABDOMEN WITHOUT AND WITH CONTRAST CLINICAL INFORMATION: Follow-up of Bosniak 2F cyst COMPARISON: 01/07/2023 and 05/26/2021 TECHNIQUE: Contiguous axial thin section helical images of the abdomen were performed before and after the administration of oral contrast and 85 mL of Omnipaque 350 intravenous contrast. The data set was reformatted in the coronal and sagittal planes and reviewed on an independent workstation. This CT examination was performed using dose optimization techniques as appropriate, variously including the following: *Automated exposure control *Adjustment of mA and/or kV according to patient size (this includes techniques or standardized protocols for targeted exams where dose is matched to indication/reason for exam; i.e. extremities or head) *Use of iterative reconstruction technique FINDINGS: LUNG BASES: Again seen is a 4 mm calcified granuloma in the medial base of the left lower lobe. LIVER, GALLBLADDER, AND BILIARY TREE: The liver is unremarkable. The gallbladder is unremarkable. There is no bile duct dilation. PANCREAS: Unremarkable SPLEEN: Unremarkable ADRENAL GLANDS: Unremarkable KIDNEYS: Again seen is a mostly exophytic cyst extending from the superior pole of the left kidney measuring 3.8 cm long axis. There is thin linear high density along the inferior wall of the lesion shows interval decrease sequentially from 2021 until 2022 and again today 2024.. The calcific patient also appears thinner on the current study, and is now hairline thin and measures 11 mm long axis. In 2022, it measured 3 mm thick and 18 mm long axis. In 2021, there are 2 separate foci of calcification measuring up to 3 mm thickness. There are no other renal lesions. BOWEL LOOPS: Visualized bowel in the abdomen demonstrates no abnormality. Normal-appearing appendix was also identified. LYMPH NODES: Normal. VASCULAR: Minimal vascular calcifications are evident. BONES: Vertebral bodies in the lower thoracic spine are elongated with irregular endplates and anterior osteophytes suggesting prior impaction syndrome. 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 The calcification has decreased in size and thickness. Wall calcification previously measured up to 3 mm thick, and now is hairline thin which is consistent with a Bosniak 2 cyst requiring no further follow-up. Fleischner guidelines were followed. Electronically signed by: Terry Peterson MD 03/19/2025 04:47 PM EST RP
[2025-03-19] MEDS: iohexoL 350 MG/ML 100 ML INFUS..BTL 85 ML IV (16:06)
--- OUTSIDE RECORDS SUMMARY | 2025-03-19 20:02 | XMS_ITS | Encounter Summary ---
Author Organization [facility] Address [address] [facility] [address] [place] [address] Phone Care Team Providers Care Transmission Rebuilder Name Role Phone León Vo MD Primary Care Provider [phone] -[phone] Reason for Referral * - New Request Specialty Diagnoses / Procedures Referred By Kervin goel Referred To Contact Radiology Diagnoses PVD (peripheral vascular disease) Procedures US Lower Extremity Arteries (LETICIA) Physio Limited [facility] Shahzad Levy DO [address] [address] Phone: tel: fax: mailto:[email or web address] Referral ID Status Reason Start Date Expiration Date V isits Requested Visits Authorized [id number] New Request 12/15/2024 1 1 Encounter Details Date Type Department Care Team (Late st Contact Info) Description 12/15/2024 Ancillary Orders [facility] [address] 3rd [place] [address] Shahzad Levy DO [address] [address] PVD (peripheral vascular disease) (Primary Dx) Social [...] Description 06/26/2025 7:30 AM EST Office Visit [facility] [address] [place] [address] 3rd Floor, [address] [place] [address] Shahzad Levy DO [address] [place] [address] [address] [place], [place] [id number] [email or web address] documented as of this encounter Results * [...] disease documented in this encounter Care Teams Transmission Rebuilder Relationship Specialty Start Date End Date León Vo MD [address] [place] [address] [place] [address] PCP - General Internal Medicine 07/05/20 documented as of this encounter Additional Source Comments The information contained in this document represents components of the legal health record. It is not the complete legal health record.[facility]
--- OUTSIDE RECORDS SUMMARY | 2025-03-19 20:02 | XMS_ITS | Clinical Summary ---
Author Organization [facility] Address [address] [address] Phone Care Team Providers Care Refrigeration Plant Cork Insulator Name Role Phone León Vo MD Primary Care Provider +1 -[phone] Allergies No known active allergies Medications lisinopril [...] Description 12/21/2024 8:00 AM EDT Office Visit [facility] [address] [place] [address] 3rd Floor, [address] [place] [address] Adrianna Santiago, MAYRA Peripheral vascular disease of extremity with claudication (Primary Dx); Pure hypercholesterolemia from Last 3 Months Immunizations Immunization Administration [...] Description 06/26/2025 7:30 AM EST Office Visit [facility] [address] [place] [address] 3rd Floor, [address] [place] [address] Shahzad Levy, [address] [place] [address] [place] [address] Health Maintenance Due Date Last Done Comments [...] this topic Medical Devices Not on file Insurance [facility] POS EPO [facility] POS EPO [facility] POS EPO [facility] POS EPO [facility] POS EPO [employer] POS EPO Care Teams Refrigeration Plant Cork Insulator Relationship Specialty Start Date End Date León Vo MD [address] [place] [address] [place] [address] PCP - General Internal Medicine 07/05/20 Additional Source Comments The information contained in this document represents components of the legal health record. It is not the complete legal health record.[facility]
--- OUTSIDE RECORDS SUMMARY | 2025-03-19 20:02 | XMS_ITS | Encounter Summary ---
Author Organization [facility] Address 399 [facility] [address] [place] [address] Phone Care Team Providers Care Inpatient Auditor Name Role Phone León Vo MD Primary Care Provider +1 -[phone] Reason for Referral * - Closed Specialty Diagnoses / Procedures Referred By Kervin goel Referred To Contact Radiology Diagnoses Atrial fibrillation Arrhythmia Procedures US Lower Extremity Arteries (LETICIA) Physio Complete Bilat Shahzad Levy DO Phone: tel: fax: mailto: Referral ID Status Reason Start Date Expiration Date Visits Re quested Visits Authorized [id number] Closed 07/14/2023 07/13/2024 1 1 Encounter Details Date Type Department Care Team (Latest Contact Info) Description 07/14/2023 Ancillary Orders [facility] 22 [facility] 3rd Floor, [address] [place] [address] Shahzad Levy DO [address] [place] [address] [email or web address] Atrial fibrillation (Primary Dx); Arrhythmia Social [...] Description 06/26/2025 7:30 AM EST Office Visit [facility] [address] [facility] 3rd Floor, [address] [place] [address] Shahzad Levy DO 22 [facility] [address] [place] [address] [email or web address] documented as of this encounter Results * [...] dysrhythmia documented in this encounter Care Teams Inpatient Auditor Relationship Specialty Start Date End Date León Vo MD [address] [place] [address] [address] [place] [address] PCP - General Internal Medicine 07/05/20 documented as of this encounter Additional Source Comments The information contained in this document represents components of the legal health record. It is not the complete legal health record.[facility]
--- OUTSIDE RECORDS SUMMARY | 2025-03-19 20:02 | XMS_ITS | Encounter Summary ---
Author Organization [facility] Address [address] [facility] [address] [place] [address] Phone Care Team Providers Care Script Reader Name Role Phone León Vo MD Primary Care Provider +1 -[phone] Reason for Referral * - Closed Specialty Diagnoses / Procedures Referred By Kervin goel Referred To Contact Radiology Diagnoses Atrial fibrillation Arrhythmia Procedures US Aorta Duplex Complete Shahzad Levy DO Phone: tel: fax: mailto: Referral ID Status Reason Start Date Expiration Date Visits Re quested Visits Authorized [id number] Closed 07/14/2023 07/13/2024 1 1 Encounter Details Date Type Department Care Team (Latest Contact Info) Description 07/14/2023 Ancillary Orders [facility] 22 [facility] 3rd Floor, [address] [place] [address] Shahzad Levy DO 22 [facility] [address] [place] [address] [email or web address] Atrial fibrillation (Primary Dx); Arrhythmia Social [...] Description 06/26/2025 7:30 AM EST Office Visit [facility] [address] [place] [address] 3rd Floor, [address] [place] [address] Shahzad Levy DO 22 [facility] [address] [place] [address] [email or web address] documented as of this encounter Results * [...] dysrhythmia documented in this encounter Care Teams Script Reader Relationship Specialty Start Date End Date León Vo MD [address] [place] [address] [place] [address] PCP - General Internal Medicine 07/05/20 documented as of this encounter Additional Source Comments The information contained in this document represents components of the legal health record. It is not the complete legal health record.[facility]
--- OUTSIDE RECORDS SUMMARY | 2025-03-19 20:02 | XMS_ITS | Clinical Summary ---
Author Organization [facility] Address [address] [address] Care Team Providers Care Property Appraiser Name Role Phone León Vo MD Primary Care Provider +1- [phone] Allergies No known active allergies Medications Aspirin [...] to complete this topic Insurance Care Teams Property Appraiser Relationship Specialty Start Date End Date León Vo MD [address] [place] [address] [place] [address] PCP - General Internal Medicine 02/24/21
== END 2025-03-19 15:25 | disposition home or self-care (01) ==
LOC: HO.CT 15:24
PROVIDERS: PCP Internal Medicine; Visit Provider Internal Medicine
DX: N28.1 Cyst of kidney, acquired (principal)
CPT/HCPCS: 74170; Q9967

== ENCOUNTER → 2025-03-19 15:32 | Outpatient (BNV) | payer OTHER, SELFPAY | PROVIDERS: PCP Internal Medicine; Visit Provider Radiology Diagnostic Radiology | DX: N28.1 Cyst of kidney, acquired (principal) | CPT/HCPCS: 74170 ==

== ENCOUNTER 2025-04-06 16:01 | Outpatient (AMB) | payer OTHER, SELFPAY ==
[2025-04-06 16:13] VITALS: BP 114/66; PULSE 62; RESP 18; O2SAT 97; BMI 29.6
--- NOTE | 2025-04-06 16:13 | MHC.PC.OV ---
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 Electronic Coils Required: No Accompanied by: Self / Same As Patient Allergies No Known Allergies (No Known Allergies*) Allergy (Verified 04/06/25 16:28) Medication List - Last Reconciled 04/06/25 by León Vo MD aspirin 81 mg PO DAILY 90 days atorvastatin 80 mg PO DAILY 90 days clonidine HCl 0.2 mg PO Q12H 90 days finasteride 5 mg PO DAILY 90 days lisinopril 20 mg PO DAILY 90 days metoprolol tartrate 12.5 mg (1/2 x 25 mg) PO BID 90 days Tobacco use date assessed: 11/30/24 Dental Screening Dental Screen Date: 04/06/25 Did you have a dental visit in the last 12 months?: No Did you have a dental problem in the last 6 months where you did not have access to dental care?: No Was dental information given to patient?: No HPI 4mt f/u HPI Details Patient comes in today for his follow-up visit States that he feels okay He denies any headaches or dizziness Denies any chest pains, no shortness of breath No nausea/vomiting, no abdominal pain No change in bowel habits noted He had his follow-up labs done a couple of weeks ago - to discuss his results [facility] Medical History Essential hypertension Varicose veins of lower extremities with other complications Diabetes mellitus Obesity (BMI 30-39.9) Coronary artery disease Benign prostatic hyperplasia with urinary frequency Pure hypercholesterolemia Left renal mass Overweight (BMI 25.0-29.9) Chronic gastritis H pylori ulcer Hyperlipidemia Elevated PSA Gastritis Benign essential hypertension Surgical History Status post endovenous radiofrequency ablation of saphenous vein (~2022) History of coronary artery stent placement (~10/2020) H/O colonoscopy H/O nasal polypectomy Family History Father No problems noted. Mother No problems noted. 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 Cognitive needs: No Hearing needs: No Vision needs: No Questionnaire Thrive Questionnaire Date Thrive assessed: 04/06/25 I am a: Patient What is your living situation today?: I choose not to answer this question Within the past 12 months, did the food you bought not last and you didn't have the money to get more?: I choose not to answer this question Within the past 12 months, did you worry whether your food would run out before you got money to buy more?: I choose not to answer this question Do you have trouble paying for medicines?: I choose not to answer this question Do you have trouble getting transportation to medical appointments?: I choose not to answer this question Do you have trouble paying your heating and electricity bill?: I choose not to answer this question Do you have trouble taking care of your child, family member or friend?: I choose not to answer this question Do you have trouble with day-to-day activities such as bathing, preparing meals, shopping, managing finances, etc.?: I choose not to answer this question Are you currently unemployed and looking for a job?: I choose not to answer this question Are you interested in more education?: I choose not to answer this question Please select the resources that you would like help with: None Currently or been in a relationship where the following occur: I choose not to answer THRIVE Score: 0 ELROY-7 AMB Questionnaire ELROY-7 Date ELROY - 7 assessed: 11/30/24 Source: Developed by Drs. Raul Brown, Riana Kincaid, Rocky Ricci and colleagues, with an educational andrés from [employer]. Review of Systems Const Denies chills, Denies fatigue, Denies fever(s) and Denies headache(s) ENT Denies dysphagia, Denies dizziness, Denies otalgia, Denies headache(s), Denies neck pain, Denies odynophagia and Denies sore throat Card Denies chest pain, Denies palpitations and Denies dyspnea Resp Denies chest congestion, Denies cough and Denies dyspnea GI Denies abdominal pain, Denies constipation, Denies dysphagia, Denies heartburn, Denies diarrhea, Denies nausea, Denies odynophagia and Denies vomiting Denies difficulty urinating, Denies dysuria, Denies nocturia and Denies urinary frequency Musc Denies back pain and Denies neck pain Skin/Breast Denies rash Neuro Denies dizziness and Denies headache(s) Endo Denies fatigue and Denies palpitations Physical exam (Primary Care) Vital Signs: Last Vital Signs Pulse 62 04/06/25 16:13 Resp 18 04/06/25 16:13 BP 114/66 04/06/25 16:13 Pulse Ox 97 04/06/25 16:13 Oxygen Delivery Method Room Air 04/06/25 16:13 BMI result Body Mass Index 29.6 Tobacco/Smoking Status: Tobacco use Status Tobacco use date assessed 11/30/24 04/06/25 16:15 Patient Tobacco Use Status Never used Tobacco 04/06/25 16:15 e-Cigarette/Vaping Use Never Used 04/06/25 16:15 Thrive Assessment: Date of Thrive Assessment Date Thrive assessed 04/06/25 04/06/25 16:16 Currently or been in a relationship where the following occur: I choose not to answer Const General: no acute distress and alert HENMT Ears: TM's normal bilaterally and EAC's normal Throat: Yes posterior oropharynx normal and Yes tonsils normal (no TP congestion) Neck Neck: Yes supple and No lymphadenopathy Thyroid: Thyroid normal Resp Auscultation: clear to auscultation bilaterally, no rales and no wheezes Cardio Rate: regular rate Rhythm: regular rhythm Heart sounds: no murmurs GI Palpation (GI): Soft to palpation and nontender Auscultation: normal bowel sounds General: Yes no CVA tenderness Back/Spine/Pelvis Back: no CVA tenderness Thoracic/Lumbar Spine: No lumbar spinal tenderness Skin Rashes: no rashes Extrem General: No clubbing, No cyanosis and Yes pedal edema ((+) trace, bilaterally) Results Reviewed Results Reviewed: Laboratory Tests 03/17/25 03/17/25 09:01 09:21 WBC 6.2 Hgb 15.8 Hct 46.7 Plt Count 208 Sodium 143 Potassium 4.3 Creatinine 1.11 Estimated GFR > 60 Fasting Glucose 99 Hemoglobin A1c % 5.9 Calcium 9.1 AST 25 ALT 34 Triglycerides 82 Cholesterol 127 LDL Cholesterol, Calc 70 HDL Cholesterol 41 Prostate Specific Ag 2.78 TSH 1.01 Ur Specific [place] 1.020 Urine Protein Negative Urine Glucose (UA) Negative Urine Blood Negative Urine Nitrite Negative Ur Leukocyte Esterase Negative Coding Level of Care Code Est Pt Level 4 (69423) Diagnoses Coronary artery disease involving [place] coronary artery of [place] heart without angina pectoris I25.10 Associated angina: without angina Coronary Disease-Associated Artery/Lesion type: [place] artery [place] vs. transplanted heart: [place] heart Pure hypercholesterolemia E78.00 Essential hypertension I10 Type 2 diabetes mellitus without complication, without long-term current use of insulin E11.9 Diabetes mellitus complication status: without complication Diabetes mellitus [facility] insulin use: without [facility] use Diabetes mellitus type: type 2 Left renal mass N28.89 Renal calculus, left N20.0 Varicose veins of lower extremities with other complications I83.893 Benign prostatic hyperplasia with urinary frequency N40.1; R35.0 Overweight (BMI 25.0-29.9) E66.3 Assessment & Plan Assessment & Plan (1) Coronary artery disease: Comment: S/P NSTEMI in 10/2020; (+) ROSALIO to OM-1 / circumflex artery Code(s): I25.10 - Atherosclerotic heart disease of [place] coronary artery without angina pectoris Category: Medical Qualifiers: Associated angina: without angina Coronary Disease-Associated Artery/Lesion type: [place] artery [place] vs. transplanted heart: [place] heart Qualified Code(s): I25.10 - Atherosclerotic heart disease of [place] coronary artery without angina pectoris Plan: S/P NSTEMI in 10/2020 requiring ROSALIO to circumflex artery S/P Ticagrelor 90 mg BID x 1 year Continue lifelong low dose Aspirin therapy at 81 mg QD and Metoprolol 12.5 mg BID Patient is currently asymptomatic from cardiac standpoint Follow up with cardiology as scheduled (2) Pure hypercholesterolemia: Code(s): E78.00 - Pure hypercholesterolemia, unspecified Category: Medical Plan: Results of his labs done a few weeks ago reviewed and discussed with patient Reinforced low cholesterol diet Continue Atorvastatin 80 mg QD Will recheck his labs and fasting lipids in 4 months for follow up (3) Essential hypertension: Code(s): I10 - Essential (primary) hypertension Category: Medical Plan: Reinforced low sodium diet - goal is systolic BP of 120 mm or less Continue Lisinopril 20 mg QD, Metoprolol 12.5 mg BID and Clonidine 0.2 mg BID (4) Diabetes mellitus: Code(s): E11.9 - Type 2 diabetes mellitus without complications Category: Medical Qualifiers: Diabetes mellitus complication status: without complication Diabetes mellitus termination clerk insulin use: without termination clerk use Diabetes mellitus type: type 2 Qualified Code(s): E11.9 - Type 2 diabetes mellitus without complications Plan: His HgbA1c is at 5.9% on his recent labs (was previously at 5.8% a few months ago) - goal is at least <6.5% but should be lower if he does not wish to take any Rx for his condition Reinforced diabetic diet; patient has declined offer to start him on Rx for diabetes and would like to continue with diet modification, exercise and weight loss for now - he has so far been able to successfully get his blood sugar back under control Reinforced diabetic diet Will recheck his labs, FBS and HgbA1c in 4 months for follow up (5) Left renal mass: Code(s): N28.89 - Other specified disorders of kidney and ureter Category: Medical Plan: Repeat abdominal CT done in December 2022 for his left renal mass came out benign - mass is a non-enhancing stable 1.9 cm cystic lesion in the upper pole of the left kidney with thick peripheral calcifications that could potentially obscure peripheral mural nodules. This is classified as a Bosniak 2F lesion and it was recommended that he get a follow-up CT again in a year's time to ensure stability He was sent for his repeat CT last year but this was never scheduled nor done and CT was ordered again at his last visit He finally got repeat CT done on 03/19/2025, which revealed (+) interval decreasing grade of previous Bosniak 2F cyst in the superior pole the left kidney. The calcification has decreased in size and thickness - wall calcification previously measured up to 3 mm thick, and is now hairline thin, which is consistent with a Bosniak 2 cyst requiring NO further follow-up Follow up with urology as scheduled or as needed (6) Renal calculus, left: Code(s): N20.0 - Calculus of kidney Category: Medical Plan: (+) NON-OBSTRUCTING stones seen in the left kidney incidentally on his previous abdominal CT Patient is currently asymptomatic and does not require any intervention at this time He has been encouraged to increase his oral fluids regularly Follow up with urology as scheduled (7) Varicose veins of lower extremities with other complications: Code(s): I83.893 - Varicose veins of bilateral lower extremities with other complications Category: Medical Plan: S/P right great saphenous vein ablation with venaseal by Dr. Levy a couple of years ago (2022) with (+) improvement of his leg symptoms He was advised that he also has venous reflux on his left leg but as he has very little symptoms on the left leg, no intervention is needed at the time Follow up with vascular surgery as scheduled (8) Benign prostatic hyperplasia with urinary frequency: Code(s): N40.1 - Benign prostatic hyperplasia with lower urinary tract symptoms; R35.0 - Frequency of micturition Category: Medical Plan: Continue Tamsulosin 0.4 mg Q HS Prostate Bx done last year reportedly came back negative Follow up with urology as scheduled (9) Overweight (BMI 25.0-29.9): Code(s): E66.3 - Overweight Category: Medical Plan: Reinforced diet/exercise as tolerated/lose weight - he has gained some weight since his last visit Plan Follow up in 4 months Orders: Orders Hemoglobin A1c 4 Months E11.9 - Type 2 diabetes mellitus without complications Comprehensive Bastian. Panel Fast 4 Months E78.00 - Pure hypercholesterolemia, unspecified TSH reflex Free T4 4 Months E78.00 - Pure hypercholesterolemia, unspecified UA CC w/rflx Micro + Cult 4 Months R30.0 - Dysuria Lipid Panel 4 Months E78.00 - Pure hypercholesterolemia, unspecified Complete Blood Count Auto Diff 4 Months D64.9 - Anemia, unspecified Microalbumin, Random (w Creat) 4 Months E11.9 - Type 2 diabetes mellitus without complications Vitamin D 25-OH Total 4 Months E55.9 - Vitamin D deficiency, unspecified
--- OUTSIDE RECORDS SUMMARY | 2025-04-06 20:38 | XMS_ITS | Clinical Summary ---
Author Organization [facility] Address [address] [address] Phone Care Team Providers Care Set Rider Name Role Phone León Vo MD Primary Care Provider [phone] [phone] Allergies No known active allergies Medications lisinopril [...] I ordered him an updated lipid panel Immunizations Immunization Administration Dates Next Due COVID-19 (Pre-02/15) [employer] Vaccine, rS-Ad26, P F 10/02/2021,03/27/2021 Influenza Quadrivalent [...] Description 06/26/2025 7:30 AM EST Office Visit [facility] [address] [place] [address] 3rd Floor, [address] [place] [address] Shahzad Levy DO 22 [facility] [address] [place] [id number] [email or web address] Health Maintenance Due Date Last Done Comments [...] of 2) 2012 INFLUENZA VACCINE (#1) 2024 3, 02/19/2022, 03/27/2021 COVID-19 VACCINE (3 - 2024-2 [...] topic Medical Devices Not on file [facility] [place] [address] [place] [address] [place] [address] [place] [address] [place] [address] [employer] HMO POS EPO Care Teams Set Rider Relationship Specialty Start Date End Date León Vo MD [address] [place] [address] [place] [address] PCP - General Internal Medicine 07/05/20 Additional Source Comments The information contained in this document represents components of the legal health record. It is not the complete legal health record.[facility]
--- OUTSIDE RECORDS SUMMARY | 2025-04-06 20:38 | XMS_ITS | Encounter Summary ---
Author Organization [facility] Address [address] [facility] [address] [place] [address] Phone Care Team Providers Care Veneer Taping Machine Offbearer Name Role Phone León Vo MD Primary Care Provider [phone] Reason for Referral * - Closed Specialty Diagnoses / Procedures Referred By Kervin goel Referred To Contact Radiology Diagnoses Atrial fibrillation Arrhythmia Procedures US Aorta Duplex Complete Shahzad Levy DO Phone: tel: fax: mailto: Referral ID Status Reason Start Date Expiration Date Visits Re quested Visits Authorized [id number] Closed 07/14/2023 07/13/2024 1 1 Encounter Details Date Type Department Care Team (Latest Contact Info) Description 07/14/2023 Ancillary Orders [facility] 22 [facility] 3rd Floor, [address] [place] [address] Shahzad Levy DO 22 [facility] [address] [place] [id number] [email or web address] Atrial fibrillation (Primary [...] Description 06/26/2025 7:30 AM EST Office Visit [facility] [address] [place] [address] 3rd Floor, [address] [place] [address] Shahzad Levy DO 22 [facility] [address] [place] [address] [email or web address] documented as of this encounter Results * [...] dysrhythmia documented in this encounter Care Teams Veneer Taping Machine Offbearer Relationship Specialty Start Date End Date León Vo MD [address] [place] [address] [place] [address] PCP - General Internal Medicine 07/05/20 documented as of this encounter Additional Source Comments The information contained in this document represents components of the legal health record. It is not the complete legal health record.[facility]
--- OUTSIDE RECORDS SUMMARY | 2025-04-06 20:38 | XMS_ITS | Encounter Summary ---
Author Organization [facility] Address [address] [facility] [address] [place] [address] Phone Care Team Providers Care Airframe Technical Officer Name Role Phone León Vo MD Primary Care Provider [phone] [phone] Reason for Referral * - Closed Specialty Diagnoses / Procedures Referred By Kervin goel Referred To Contact Radiology Diagnoses Atrial fibrillation Arrhythmia Procedures US Lower Extremity Arteries ([place]) Physio Complete Bilat Shahzad Levy DO Phone: tel: fax: [email or web address] Referral ID Status Reason Start Date Expiration Date Visits Re quested Visits Authorized [id number] Closed 07/14/2023 07/13/2024 1 1 Encounter Details Date Type Department Care Team (Latest Contact Info) Description 07/14/2023 Ancillary Orders [facility] [address] [facility] 3rd Floor, [address] [place] [address] Shahzad Levy DO [address] [place] [phone] [email or web address] Atrial fibrillation (Primary Dx); Arrhythmia Social [...] Description 06/26/2025 7:30 AM EST Office Visit [facility] [address] [facility] 3rd Floor, [address] [place] [address] Shahzad Levy DO 22 [facility] [address] [place] [address] [email or web address] documented as of this encounter Results * [...] dysrhythmia documented in this encounter Care Teams Airframe Technical Officer Relationship Specialty Start Date End Date León Vo MD [address] [place] [address] [address] [place] [address] PCP - General Internal Medicine 07/05/20 documented as of this encounter Additional Source Comments The information contained in this document represents components of the legal health record. It is not the complete legal health record.[facility]
--- OUTSIDE RECORDS SUMMARY | 2025-04-06 20:38 | XMS_ITS | Encounter Summary ---
Author Organization [facility] Address [address] [facility] [address] [place] [address] Phone Care Team Providers Care Insulation Cupola Charger Name Role Phone León Vo MD Primary Care Provider [phone] Reason for Referral * - New Request Specialty Diagnoses / Procedures Referred By Kervin goel Referred To Contact Radiology Diagnoses PVD (peripheral vascular disease) Procedures US Lower Extremity Arteries ([place]) Physio Limited [facility] Shahzad Levy DO [address] [address] Phone: tel: fax: mailto:[email or web address] Referral ID Status Reason Start Date Expiration Date V isits Requested Visits Authorized [id number] New Request 12/15/2024 1 1 Encounter Details Date Type Department Care Team (Late st Contact Info) Description 12/15/2024 Ancillary Orders [facility] [address]rd [place] [address] Shahzad Levy DO [address] [address] PVD (peripheral vascular disease) (Primary Dx) Social [...] Description 06/26/2025 7:30 AM EST Office Visit [facility] [address] [place] [address] [address]rd Floor, [address] [place] [address] Shahzad Levy DO [address] [place] [address] [address] [place], [place] [phone] [email or web address] documented as of this encounter Results * [...] disease documented in this encounter Care Teams Insulation Cupola Charger Relationship Specialty Start Date End Date León Vo MD [address] [place] [address] [place] [address] PCP - General Internal Medicine 07/05/20 documented as of this encounter Additional Source Comments The information contained in this document represents components of the legal health record. It is not the complete legal health record.[facility]
== END 2025-04-06 16:36 | disposition home or self-care (01) ==
LOC: HO.HMCH 16:02
PROVIDERS: PCP Internal Medicine; Visit Provider Internal Medicine
DX: I25.10 Atherosclerotic heart disease of native coronary artery without angina pectoris (principal); E78.00 Pure hypercholesterolemia, unspecified; I10 Essential (primary) hypertension; E11.9 Type 2 diabetes mellitus without complications; N28.89 Other specified disorders of kidney and ureter; N20.0 Calculus of kidney; I83.893 Varicose veins of bilateral lower extremities with other complications; N40.1 Benign prostatic hyperplasia with lower urinary tract symptoms; R35.0 Frequency of micturition; E66.3 Overweight